=== PATIENT | female | born 1965 | race Caucasian/White ===

== ENCOUNTER 2023-02-24 10:47 | Outpatient (OUT) | payer OTHER, SELFPAY ==
--- NOTE | 2023-02-24 10:51 | PM.CN ---
Consult Note: HPI Data of Consult Patient: known to practice within the last 3 years Consult date: 02/24/23 Requesting Physician: KYLE SENA NP Primary Care Provider: SCOTT Stinson Narrative Narrative: Patient is here for f/u of low back rad to arms unchanged from last visit . Lyrica was stopped last visit which has helped brain fog. Medical marijuana use. No new sensorimotor or bowel or bladder issues. No adverse medication SE. Medication regimen assists patient in ability to complete ADLs. She is follwing up with her neurosurgeon soon. We discussed thoracic RFA procedure. She prefers no interventional tx at this time. cc:: CC: KYLE SENA NP Review of Systems ROS Status of ROS 10 or more systems reviewed and unremarkable except as noted in history and below Musculoskeletal Reports: back pain Exam Constitutional Documenting provider has reviewed patient's vital signs: yes Common normals: no apparent distress, average body habitus, oriented x3, no limitations, healthy appearing, alert and well nourished Orientation/consciousness: Yes awake, Yes oriented to person, Yes oriented to place and Yes oriented to time HENMT Common normals: normocephalic, head/scalp atraumatic, nasal mucous membranes and turbinates normal and moist oral mucous membranes Respiratory Common normals: normal respiratory effort, no retractions and no use of accessory muscles Effort & inspection: able to speak in complete sentences and symmetric chest movement Back & Pelvis Thoracic spine/upper back: normal to inspection, ROM limited, paraspinal muscle tenderness, paraspinal muscle spasm and other soft tissue findings (positive facet loading right scapular ) Extremity Common normals: normal to inspection, full ROM, normal capillary refill and no pedal edema Other: muscle strength 4/5 bilat LE, 5/5 bilat UE sensation intact all extremities, no arm drift Assessment and Plan Assessment and Plan (1) Muscle spasm: (2) Thoracic spondylosis: (3) H/O degenerative disc disease: Plan consider thoracic RFA in future refill trazadone baclofen increase to BID PRN f/u with neurosurgeon
== END 2023-02-24 10:48 ==
PROVIDERS: PCP Family Medicine; Visit Provider Nurse Practitioner
DX: M47.814 Spondylosis without myelopathy or radiculopathy, thoracic region (principal); M62.838 Other muscle spasm
CPT/HCPCS: G0463

== ENCOUNTER 2023-08-11 10:38 | Outpatient (OUT) | payer OTHER, SELFPAY ==
--- NOTE | 2023-08-11 11:02 | PM.CN ---
Consult Note: HPI Data of Consult Patient: known to practice within the last 3 years Requesting Physician: Barbara Foote NP Primary Care Provider: SCOTT HART Consult Narrative Reason for consult: f/u Narrative: Lilo Hammond a pleasant 57 year old female presents for evaluation and management of chronic pain. Patient has ongoing neck pain post multiple sugeries, is now noticing weakness in right arm and hand and numbness tingling pain to right anterior neck and upper chest area. Patient continues to have mid thoracic back pain, today 5-02/19. Patient also has new lumbar back pain with radiculopathy to RLE. No loss of bowel or bladder. cc:: CC: Barbara Foote NP Review of Systems ROS Status of ROS 10 or more systems reviewed and unremarkable except as noted in history and below Musculoskeletal Reports: back pain and neck pain Meds Home Medications and Allergies Home Medications Medication Instructions Recorded Confirmed Type MEDICAL MARIJUANA 02/24/23 History OSCAL 600 mg DAILY 02/24/23 History amitriptyline 100 mg tablet 100 mg PO DAILY 02/24/23 02/24/23 History baclofen 10 mg tablet 10 mg PO BID 02/24/23 02/24/23 History levothyroxine 50 mcg capsule 50 mcg PO DAILY 02/24/23 02/24/23 History pregabalin 150 mg capsule (Lyrica) 150 mg PO BID 02/24/23 02/24/23 History sertraline 200 mg capsule 200 mg PO DAILY 02/24/23 02/24/23 History trazodone 100 mg tablet 100 mg PO DAILY 02/24/23 02/24/23 History Allergies Allergy/AdvReac Type Severity Reaction Status Date / Time No Known Drug Allergies Allergy Verified 02/24/23 11:23 Exam Constitutional Documenting provider has reviewed patient's vital signs: yes Common normals: no apparent distress, oriented x3, healthy appearing, alert and well nourished General appearance: cooperative Orientation/consciousness: Yes awake, Yes oriented to person, Yes oriented to place and Yes oriented to time HENMT Common normals: normocephalic, hearing grossly normal bilaterally and moist oral mucous membranes Head and scalp: normocephalic Eye Common normals: PERRL Pupil: PERRL Neck & C-Spine Common normals: full ROM General: normal visual inspection Chest Common normals: inspection of chest normal Respiratory Common normals: normal respiratory effort, no retractions and no use of accessory muscles Effort & inspection: able to speak in complete sentences and symmetric chest movement Back & Pelvis Thoracic spine/upper back: normal to inspection, ROM limited, pain with ROM, paraspinal muscle tenderness and other soft tissue findings (positive facet loading right scapular ) Lumbar spine/lower back: pain with ROM and straight leg raise positive right Other: negative lumbar facet loading positve RLE radiculopathy Extremity Common normals: normal to inspection, full ROM, normal capillary refill and no pedal edema Other: muscle strength 4/5 bilat LE, 5/5 bilat UE sensation intact all extremities, no arm drift Extremity image (front): 1. Neuro Common normals: oriented x3, CN's II-XII intact bilaterally, moves all extremities, no focal motor deficits, no sensory deficits noted and deep tendon reflexes 2+ bilaterally Sensorium/orientation: alert Motor exam: no movement abnormalities noted and strength abnormal (4/5 BUE 4/5 in RLE) Psych Common normals: mental status grossly normal, thought process normal, cooperative, affect normal, speech normal and activity/motor behavior normal Speech: normal speech Thought process: normal thought process Results Additional Findings Additional findings: I have checked an [facility] report on this patient today and there are no aberrancies noted in the prescribing history.?? A drug screen was completed and reviewed within the last year, and if there has not been a drug screen completed we ordered one today to monitor higher risk, state monitored pain medication use. As part of providing excellent, safe, comprehensive care, the following was completed at our patient's visit: 1. A medication reconciliation and review to ensure accurate knowledge of current/active medications, including asking our patients to inform us about any [id number] medications or herbal remedies/nutritional supplements/alternative remedies. 2. A review to specifically ensure our patients have had annual screening for: elevated body mass index (BMI), tobacco use, screening for depression, and screening for unhealthy alcohol use. When screening is concerning, patients are provided with education and the specific recommendation to discuss the concerning health issue and treatment options with their primary care provider. Assessment and Plan Assessment and Plan (1) Thoracic spondylosis: (2) Muscle spasm: (3) Chronic neck pain: (4) H/O neck surgery: (5) H/O degenerative disc disease: (6) Lumbar spondylosis: (7) Lumbar radiculopathy: Plan patient has follow up with her Neurosurgeon next week and would like to discuss her symptoms with them continue current medication f/u 3 months or as needed
== END 2023-08-11 10:39 | disposition home or self-care (01) ==
LOC: PM 10:38
PROVIDERS: PCP Family Medicine; Visit Provider Nurse Practitioner
DX: M47.814 Spondylosis without myelopathy or radiculopathy, thoracic region (principal); M62.838 Other muscle spasm; M54.2 Cervicalgia; M50.30 Other cervical disc degeneration, unspecified cervical region; M47.816 Spondylosis without myelopathy or radiculopathy, lumbar region; M54.16 Radiculopathy, lumbar region
CPT/HCPCS: G0463

== ENCOUNTER 2023-11-10 10:51 | Outpatient (OUT) | payer OTHER, SELFPAY ==
--- OUTSIDE RECORDS SUMMARY | 2023-11-10 10:55 | XMS_ITS | CCD ---
Author Name Unknown Address [address] [place] [address] Organization [facility] Care Team Providers Care Credentialing Specialist Name Role Phone Julian Pulido Unavailable LUNA ., DR HELENA Biggs Attending Unavailable WONDERLY, DR JIA lAatorre Primary Care Unavailable CARRASCO ., DR HELENA Biggs Admitting Unavailable CARSON ., KEVIN Consulting Unavailable CARRASCO ., DR HELENA Biggs Attending Unavailable CARRASCO ., DR HELENA Biggs Admitting Unavailable WONDERLY, DR JIA Alatorre Primary Care Unavailable CARSON ., KEVIN Consulting Unavailable WONDERLY, DR JIA Alatorre Consulting Unavailable CARSON ., KEVIN Consulting Unavailable CARRASCO ., DR HELENA Biggs Attending Unavailable WONDERLY, DR JIA Alatorre Primary Care Unavailable CARRASCO ., DR HELENA Biggs Admitting Unavailable CARRASCO ., DR HELENA Biggs Admitting Unavailable CARRASCO ., DR HELENA Biggs Attending Unavailable WONDERLY, DR JIA Alatorre Primary Care Unavailable CARSON ., KEVIN Consulting Unavailable LAKSHMIPATHY ., NARENDAZALEAATH Admitting Ruth vailable WONDERLY, DR JIA Alatorre Primary Care Unavailable LAKSHMIPATHY ., NARENDAZALEAATH Attending Ruth vailable CARRASCO ., DR HELENA Biggs Attending Unavailable CARRASCO ., DR HELENA Biggs Admitting Unavailable WONDERLY, DR JIA Alatorre Primary Care Unavailable CARSON ., KEVIN Consulting Unavailable CARRASCO ., DR HELENA Biggs Attending Unavailable WONDERLY, DR JIA Alatorre Primary Care Unavailable CARRASCO ., DR HELENA Biggs Consulting Unavailable CARRASCO ., DR HELENA Biggs Admitting Unavailable Wonderly Jia CHAVES Primary Care Provider TODD ISLAS Admitting Unavailable TODD ISLAS Attending Unavailable TODD ISLAS Referring Unavailable WONDERJIA LUONG Primary Care Unavailable TODD ISLAS Attending Unavailable TODD ISLAS Referring Unavailable WONDERLY, JIA B Primary Care Unavailable JEANNETTE HARRIS Attending Unavailable WONDERLY, JIA B Primary Care Unavailable TODD ISLAS Admitting Unavailable FLORENCIA ISLASLITZYARUNA Salguero Attending Unavailable TODD ISLAS Referring Unavailable WONDERLY, JIA B Primary Care Unavailable SETH GILLESPIE Attending Unavailable WONDERLY, JIA B Primary Care Unavailable TODD ISLAS Attending Unavailable FLORENCIA ISLASGENOVEVAKRISTINA Salguero Referring Unavailable WONDERLY, JIA B Primary Care Unavailable Jeannette Palmer Referring Unavailable WONDERLY, JIA B Primary Care Unavailable PRIYANKA MCGRATH Referring Unavailable WONDERLY, JIA B Primary Care Unavailable PRIYANKA MCGRATH Referring Unavailable WONDERLY, JIA B Primary Care Unavailable TODD ISLAS Referring Unavailable WONDERLY, JIA Alatorre Primary Care Unavailable Medications Current Medications Medication Drug Class(es) Dates Sig (Normalized) Sig (Original) amitriptyline hydrochloride 100 mg oral tablet (3 sources) Tricyclic Antidepressant Start: 12-08-2020 take 1 tablet by mouth once daily amitriptyline (ELAVIL) 100 mg tablet Indications: Chronic bilateral low back pain without sciatica , Bilateral carpal tunnel syndrome , Lumbar radiculopathy , Cervical disc disease Take 1 tablet (100 mg total) by mouth nightly. 30 tablet 6 12/08/2020 Active baclofen 10 mg oral tablet (3 sources) gamma-Aminobutyric Acid-ergic Agonist Start: 08-13-2021 take 1 tablet by mouth once daily baclofen (LIORESAL) 10 mg tablet Take 1 tablet (10 mg total) by mouth nightly. 0 08/13/2021 Active Calcium (2 sources) Phosphate Binder, Calcium CALCIUM ORAL Take by mouth. 0 Active calcium carbonate 1250 mg oral tablet (1 source) take 1 tablet by mouth every twelve hours Calcium 500 MG 1 tablet with meals Orally Twice a day Active cholecalciferol 0.125 mg oral tablet (3 sources) Vitamin D take 1 tablet by mouth in the morning cholecalciferol, vitamin D3, 5,000 units tablet Take 1 tablet (5,000 Units total) by mouth in the morning. 0 Active take 1 tablet by cliff th every twenty-four hours Vitamin D 50 MCG (1999 UT) 1 tablet Orally Once a day Active diclofenac sodium 50 mg delayed release oral tablet (1 source) Nonsteroidal Anti-inflammatory Drug Diclofenac Sodium 50 MG Oral for 30 Active estradiol 0.1 mg/ml vaginal cream (2 sources) Estrogen Start: 023 estradioL (ESTRACE) 0.01 % (0.1 mg/gram) vaginal cream Insert into the vagina. 0 07/07/2023 Active estrogens, conjugated (long-term) 0.45 mg oral tablet (1 source) Estrogen take 1 tablet by mouth every twenty-four hours Premarin 0.45 MG 1 tablet Orally Once a day Active gabapentin 300 mg oral capsule (1 source) Anti-epileptic Agent Gabapentin 300 MG Oral for 90 Active levothyroxine sodium 0.05 mg oral tablet (3 sources) l-Thyroxine Start: 017 take 1 tablet by mouth in the morning levothyroxine (SYNTHROID, LEVOTHROID) 50 MCG tablet Take 1 tablet (50 mcg total) by mouth in the morning. 1 10/14/2016 Active take 1 tablet by cliff th once daily before mealtime Levothyroxine Sodium 50 MCG TAKE 1 TABLE T BY MOUTH EVERY DAY BEFORE A MEAL DIRECTED Oral for 90 Active melatonin 3 mg oral tablet (2 sources) melatonin (CIRCA DIN) tablet Take by mouth. 0 Active multivitamin (THERAGRAN) tablet (2 sources) take 1 tablet by mouth in the morning multivitamin (THERAGRAN) tablet Take 1 tablet by mouth in the morning. 0 Active sertraline 100 mg oral tablet (3 sources) Serotonin Reuptake Inhibitor take 2 tablets by mouth in the morning sertraline (ZOLOFT) 100 mg tablet Take 2 tablets (200 mg total) by mouth in the morning. 0 Active sod sulf-pot chloride-mag sulf 1.479-0.188- 0.225 gram tablet (1 source) Start: 4 sod sulf-pot chloride-mag sulf 1.479-0.188- 0.225 gram tablet Indications: History of colon polyps FOLLOW INSTRUCTIONS GIVEN BY SURGEONS OFFICE 24 tablet 0 09/23/2023 Active traZODone hydrochloride 50 mg oral tablet (2 sources) Serotonin Reuptake Inhibitor Start: 2 traZODone (DESYREL) 50 mg tablet Problems Active Problems Problem Classification Problem Date Documented Date Episodic/Chronic Anxiety disorders (2 sources) Generalized anxiety disorder; Translations: [Generalized anxiety disorder] Onset: 05-18-2017 05-18-2017 Chronic Esophageal disorders (1 source) Gastroesophageal reflux disease; Translations: [GERD (gastroesophageal reflux disease)] Chronic Genitourinary symptoms and ill-defined conditions (2 sources) Urinary incontinence; Translations: [Unspecified urinary incontinence] Onset: 11-08-2016 01-17-2023 Chronic Mood disorders (2 sources) Recurrent major depressive episodes, moderate ; Translations: [Major depressive disorder, recurrent, moderate] Onset: 04-13-2017 04-13-2017 Chronic Other and unspecified benign neoplasm (1 source) History of polyp of colon; Translations: [Personal history of colonic polyps] 09-23-2023 Episodic Other nervous system disorders (1 source) Ulnar neuropathy; Translations: [Lesion of ulnar nerve, bilateral upper limbs] Chronic Other nervous system disorders (1 source) Cervical myelopathy; Translations: [Disease of spinal cord, unspecified] Chronic Other nervous system disorders (1 source) Disease of spinal cord, unspecified Onset: 10-13-2021 Resolved: 10-13-2021 Chronic Other nervous system disorders (1 source) Lesion of ulnar nerve, bilateral upper limbs Onset: 10-13-2021 Resolved: 10-13-2021 Chronic Other nervous system disorders (1 source) Chronic pain syndrome; Translations: [CHRONIC PAIN SYNDROME] Onset: 12-04-2022 Chronic Other nervous system disorders (2 sources) Bilateral carpal tunnel syndrome; Translations: [Carpal tunnel syndrome, bilateral upper limbs] Onset: 10-20-2021 10-20-2021 Chronic Other nervous system disorders (2 sources) Chronic pain syndrome; Translations: [Chronic pain syndrome] Onset: 01-19-2022 01-19-2022 Chronic Other nervous system disorders (1 source) Other chronic pain; Translations: [Other chronic pain] Onset: 09-01-2023 Chronic Other screening for suspected conditions (not mental disorders or infectious disease) (1 source) Abnormal findings on diagnostic imaging of other parts of digestive tract; Translations: [Abnormal findings on diagnostic imaging of other parts of digestive tract] Onset: 10-07-2023 Episodic Spondylosis; intervertebral disc disorders; other back problems (11 sources) Spondylosis without myelopathy or radiculopathy, thoracic region; Translations: [Other intervertebral disc degeneration, thoracic region] Onset: 10-20-2021 Chronic Unclassified (1 source) history of colon polyps Onset: 09-09-2023 Past or Other Problems Problem Classification Problem Date Documented Date Episodic/Chronic Abdominal hernia (1 source) Hiatal hernia; Translations: [Hiatal hernia] Episodic Abdominal pain (3 sources) Epigastric pain; Translations: [Epigastric pain] Onset: 7 06-09-2020 Episodic Acquired foot deformities (2 sources) Metatarsophalangeal joint stiff; Translations: [Other deformities of toe(s) (acquired), right foot] Onset: 1 05-15-2021 Episodic Esophageal disorders (1 source) Esophagitis; Translations: [Esophagitis] Episodic Genitourinary symptoms and ill-defined conditions (2 sources) Microscopic hematuria; Translations: [Other microscopic hematuria] Onset: 0 04-11-2020 Episodic Mood disorders (2 sources) Mood disorders Onset: 1 06-11-2021 Other acquired deformities (1 source) Mallet finger of right hand; Translations: [Mallet finger of right hand] Episodic Other and unspecified benign neoplasm (1 source) Benign polyp of colon; Translations: [Hyperplastic colonic polyp] Episodic Other connective tissue disease (1 source) Arthrodesis status Onset: 2 Resolved: 2 Episodic Other connective tissue disease (2 sources) Ganglion cyst of right foot; Translations: [Ganglion, right ankle and foot] Onset: 1 05-15-2021 Episodic Other diseases of kidney and ureters (2 sources) Cyst of kidney; Translations: [Cyst of kidney, acquired] Onset: 7 09-07-2021 Episodic Other diseases of kidney and ureters (2 sources) Renal impairment; Translations: [Disorder of kidney and ureter, unspecified] Onset: 1 11-11-2021 Episodic Other gastrointestinal disorders (2 sources) Drug-induced constipation; Translations: [Drug induced constipation] Onset: 7 06-15-2017 Episodic Other nervous system disorders (2 sources) Paresthesia of upper limb; Translations: [Anesthesia of skin] Onset: 2 01-19-2022 Episodic Residual codes; unclassified (2 sources) Poor short-term memory ; Translations: [Other amnesia] Onset: 2 10-20-2021 Episodic Residual codes; unclassified (2 sources) Forgetful; Translations: [Other general symptoms and signs] Onset: 2 10-20-2021 Episodic Spondylosis; intervertebral disc disorders; other back problems (11 sources) Pain in thoracic spine; Translations: [Dorsalgia, unspecified] Onset: 2 10-20-2021 Episodic Unclassified (2 sources) Onset: 2 01-19-2022 Urinary tract infections (2 sources) Recurrent urinary tract infection; Translations: [Urinary tract infection, site not specified] Onset: 8 01-17-2023 Episodic Results Test Name Value Interpretation Reference Range Facil ity CT CERVICAL SPINE W CONTon 1 11-02-2022 CT CERVICAL SPINE W CONT CT CERVICAL SPINE W CONT History: Cervical radiculopathy Technique: Thin axial images through the cervical spine were obtained following the intrathecal administration of contrast material by the interventional radiologist. The study was supplemented by sagittal and coronal reconstructed images. Automated exposure control was utilized. Comparison: 10/05/2016 Findings: Anterior and posterior fusion of C3-C5 is again demonstrated. No hardware abnormalities are seen. Laminectomies are also seen extending from C3 through C5. At C2-3, there is bilateral facet arthropathy. No disc abnormalities are seen. No spinal stenosis is demonstrated. At C3-4, no osseous or disc abnormalities are seen. No spinal stenosis is seen. At C4-5, no osseous or disc abnormality identified. No spinal stenosis is seen. At C5-6, disc space narrowing is seen. No spinal stenosis is demonstrated. There is a right-sided neural foraminal narrowing. At C6-7, severe disc space narrowing is seen. A deformity and loss of vertebral body height of C7 is again seen and appear stable. No spinal stenosis is seen. There is a bilateral neural foraminal narrowing. At C7-T1, worsening disc space narrowing has developed since the prior study. No spinal stenosis is seen. The neural foramen appear patent bilaterally. Impression: * Stable postoperative changes from C3 through C5, unchanged the previous examination dated 10/05/2016. * Multilevel neural foraminal narrowings as described above. * Multilevel disc space narrowing and degenerative disc disease. No spinal stenoses are identified. Finalized by Jeannette Palmer MD on 09/01/2023 11:48 AM Normal [facility] CT LUMBAR SPINE W CONTon CT LUMBAR SPINE W CONT CT LUMBAR SPINE W CONT History: Lumbar radiculopathy Technique: Thin axial images through the lumbar spine were obtained following the intrathecal demonstration of contrast material by the interventional radiologist.. The study was supplemented by sagittal and coronal reconstructed images. Automated exposure control was utilized. Comparison: None Findings: At L1-2, broad-based disc osteophyte complexes effacing the anterior aspect of the thecal sac. No spinal stenosis is seen. The neural foramen appear patent bilaterally. At L2-3, broad-based disc bulging effacing the anterior aspect of the thecal sac. Bilateral facet arthropathy is also seen. There is a mild spinal stenosis at this level. The neural foramen appear patent bilaterally. At L3-4, mild broad-based disc bulging is seen. No spinal stenosis is demonstrated. The neural foramen are patent bilaterally. At L4-5, broad-based disc bulge is seen. Bilateral facet arthropathy and ligament hypertrophy are demonstrated. These factors combine to produce a mild to moderate spinal stenosis. The neural foramen appear patent bilaterally. L5-S1, no osseous or disc abnormalities are demonstrated. No spinal stenosis is seen. The neural foramen appear patent bilaterally. Impression: * Multilevel broad-based disc bulging and disc osteophyte complexes as described above. * Mild spinal stenoses at L3-4 and L4-5 secondary to disc bulge, facet atrophic, and ligament hypertrophy. Finalized by Jeannette Palmer MD on 09/01/2023 12:07 PM Normal [facility] CT THORACIC SPINE W CONTon 1 11-02-2022 CT THORACIC SPINE W CONT CT THORACIC SPINE W CONT History: Thoracic back pain Technique: Thin axial images through the rest spine were obtained following the intrathecal administration of contrast material by the interventional radiologist. The study was supplemented by sagittal and coronal reconstructed images. Automated exposure control was utilized. Comparison: None Findings: There is multilevel disc space narrowing and degenerative disease throughout the thoracic spine. There is multilevel disc ossified complex throughout the thoracic spine producing effacement of the anterior aspect of the thecal sac to various degrees. These findings appear to be most severe at T10-11 and T11-12. At T9-T10, there is right-sided facet arthropathy and ligament hypertrophy effacing the right lateral aspect of thecal sac. At T10-11, left-sided facet arthropathy and ligament hypertrophy is seen effacing the left aspect of the thecal sac. At T11-T12, there is bilateral facet arthropathy and hypertrophy effacing the lateral aspect of the thecal sac. This in combination with the disc height complex is seen producing a mild spinal stenosis. Impression: * Multilevel disc osteophyte complex effacing the anterior aspect of the thecal sac, most severe at T10-11 and T11-12. * Bilateral facet arthropathy and ligament hypertrophy at T11-12 which, in combination with the discussed by complex, seen producing a mild spinal stenosis. * Right-sided facet arthropathy and ligament hypertrophy at T9-T10. Left-sided facet arthropathy and ligament hypertrophy at T10-11. Finalized by Jeannette Palmer MD on 09/01/2023 11:56 AM [facility] [place] INJ LUM/SAC FOR DIAG/THER P W FLUORO GUIDEon 09-01-2023 FL INJ LUM/SAC FOR DIAG/THERP W FLUORO GUIDE FL INJ LUM/SAC FOR DIAG/THERP W FLUORO GUIDE History: 57-year-old female with multilevel back pain.. Lumbar CT myelogram was requested Exam/Technique: The procedure was performed by Dr. Palmer. Maximum sterile barrier technique was used as is protocol for the institution. Total fluoroscopy time was 0.6 minutes. Reference air kerma was 2.8 mGy. Benefits and potential risks of the procedure were explained to the patient and informed written consent was obtained. Following appropriate prep and drape and using lidocaine for anesthesia, a lumbar puncture was performed under fluoroscopic guidance at L3 using a 22-gauge spinal needle. Once clear CSF was obtained, contrast was injected intrathecally without difficulty. The needle was then removed. No immediate complications were encountered. A single fluoroscopic spot image was obtained. The patient tolerated the procedure well. The patient was then placed on a cart and placed in a Trendelenburg position so that contrast flowed into the thoracic and cervical spine. The patient tolerated the procedure well was sent for a scheduled CT of the thoracic and lumbar spine stable condition. Comparison: None Findings: There is an anterior extradural filling defect mild spinal stenosis at L4-5. IMPRESSION: Successful uncomplicated cervical thoracic and lumbar myelogram performed under fluoroscopic guidance Finalized by Jeannette Palmer MD on 09/01/2023 11:34 AM Normal [facility] PLATELET COUNT AND MPVon Platelet mean volume (Bld) [Entitic vol] 8.3 fL Normal 7-[address] [facility] Comment on above: Performed By: #### P LTCT, PINR #### [facility] ([id number]) [address] [place] [id number] Platelets (Bld) [#/Vol] 339 10*3/uL Normal 150-[address] [facility] Comment on above: Performed By: #### P LTCT, PINR #### [facility] ([id number]) [address] [place] [id number] PROTIME AND INRon 09-01-2023 INR Coag (PPP) [Relative time] 1.0 {INR} Normal 0.8-1.[address] [facility] Comment on above: Performed By: #### P LTCT, PINR #### [facility] ([id number]) [address] [place] [phone] PT Coag (PPP) [Time] 11.8 s Normal 9.8-13.[address] [facility] Comment on above: Result Comment: NEW REFERENCE RANGE Performed By: #### P LTCT, PINR #### [facility] ([id number]) [address] [place] [id number] XR Bone Density (DEXA)on XR Bone Density (DEXA) EXAM: Dual Femur Bone Density FINDINGS: Dual Femur bone density obtained with a [employer] whole body system: RegionBMDYoung-AdultAg e-Matched Total(g/cm2)(%)T-Score (%)Z-Score Mean0.79668-5.44567.6 Impression: The mean BMD and corresponding T-score indicated above indicate Normal Bone Mass and places the patient at no significant risk for fracture. This information can serve as a baseline with which to compare future studies. EXAM: AP Lumbar Bone Density FINDINGS: AP Spine bone density obtained with a [employer] whole body system: RegionBMDYoung-AdultAg e-Matched Total(g/cm2)(%)T-Score (%)Z-Score L1-L40.52074-9.59203.7 Impression: The mean BMD and corresponding T-score indicated above indicate Normal Bone Mass and places the patient no significant risk for fracture. This information can serve as a baseline with which to compare future studies. Comment: The T-score is the primary focus of the interpretation of a patient???s bone mineral density measurement. The T-score is the number of standard deviations an individual is above or below the mean value for a young female having normal bone mass. The WHO defines osteoporosis based on the T-score value??? +1.0 to ???0.9: Normal bone mass -1.0 to -2.5: Osteopenia and thus may be at future risk of fracture -2.6 to ???5: Osteoporosis and ???at significantly increased risk of fracture??? A Z-Score of -2.0 or lower is defined as ???below the expected range for age??? and a Z-Score above -2.0 is ???within the expected range for age.??? Osteoporosis cannot be diagnosed in men under the age of 50 on the basis of BMD alone. Per 2019 ISCD guidelines, Z-Scores (not T-Scores) are preferred when reporting data in premenopausal females and males less than 50 years of age. 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 Location: 85 Patient Status: O Ordered Date: 10/19/2019 8:05:00 AM Completed Date: 10/19/2019 08:06 AM Requesting Provider: JERMAINE DEL CID Attending Provider: JERMAINE DEL CID Report Copy To: JIA HART Signs & Symptoms: M48.02 Spinal stenosis, cervical region I10 History: [place] Comments: , flex/ex , flex/ex , , , Ordering Provider - JERMAINE DEL CID MD , Exam: CERVICAL SPINE 2 OR 3 VWS ======== CERVICAL SPINE 2 OR 3 VWS 10/19/2019 8:06 AM SIGNS AND SYMPTOMS: M48.02 Spinal stenosis, cervical region I10 TECHNOLOGIST COMMENTS: Ortho follow up for cervical spine surgery. Surgery was June 2016. QUESTION FOR THE RADIOLOGIST: , flex/ex , flex/ex , , , Ordering Provider - JERMAINE DEL CID MD , PROTOCOL: Flexion and Extension views were obtained. COMPARISON: March 01, 2017 FINDINGS: Soft tissues: Postoperative change with surgical clips in the prevertebral area about appendicitis Bones: Posterior and anterior fusion hardware spanning C3-C5 in good alignment and with mature bony healing similar to prior study Laminectomies at the same levels Joints: C2-C3 shows 2 mm anterolisthesis of 2 on 3 with flexion C6-C7 shows disc space narrowing and spurring Range of motion shows somewhat limited range of motion with reduction of the C2 on C3 anterolisthesis upon extension. IMPRESSION: Postoperative cervical fusion anteriorly and posteriorly as above without change from March 01, 2017 Electronically signed: Joshua Mcadams. Transcribed by: [email or web address], User Resident: Electronically Signed by: JOSHUA MCADAMS @ 10/19/2019 02:03 PM Normal [facility] Comment on above: Order Comment: , fle x/ex , flex/ex , , , Ordering Provider - JERMAINE DEL CID MD , APTTon 02-08-2019 aPTT Coag (Bld) [Time] 27.7 s Normal 25.0-35.0 [facility] Comment on above: Result Comment: ALL RESULTS MUST BE INTERPRETED WITH RESPECT TO BLOOD DRAWING ARTIFACT OR DILUTION ERROR OF ANTICOAGULANT AT THE TIME OF SAMPLING. THE APTT SHOULD NOT BE USED TO MONITOR UNFRACTIONATED HEPARIN THERAPY, THIS LABORATORY NO LONGER HAS AN ESTABLISHED THERAPEUTIC RANGE BASED ON THE APTT. IT IS RECOMMENDED THAT THE [facility] - HEPARIN ASSAY (ANTI-XA ACTIVITY) BE USED FOR THIS PURPOSE. Performed By: #### [id number] #### [facility] [address] BASIC METABOLIC PANELon 01-12 Calcium [Mass/Vol] 9.2 mg/dL Normal 8.6-10.3 [facility] Comment on above: Performed By: #### 0 [id number] #### [facility] [address] [facility] [place] [address], [facility] Chloride [Moles/Vol] 98 mmol/L Normal 98-107 [facility] Comment on above: Performed By: #### 0 [id number] #### [facility] [address] [facility] [place] [id number], [facility] CO2 [Moles/Vol] 31 mmol/L Normal 21-31 [facility] Comment on above: Performed By: #### 0 [id number] #### [facility] [address] [facility] [place] [address], [facility] Creatinine [Mass/Vol] 1.06 mg/dL Normal 0.60-1.20 [facility] Comment on above: Performed By: #### 0 [id number] #### [facility] [address] [facility] [place] [id number], [facility] GFR/1.73 sq M predicted among blacks MDRD (S/P/Bld) [Vol rate/Area] mL/min/{1.73_m2} Normal >60 The [facility] Comment on above: Performed By: #### 0 0071 #### [facility] [address] [place] [address], [facility] GFR/1.73 sq M predicted among non-blacks MDRD (S/P/Bld) [Vol rate/Area] 54 ml/min/1.73sq m Abnormal >60 The [facility] Comment on above: Performed By: #### 0 0071 #### [facility] [address] [facility] [place] [address], [facility] Glucose [Mass/Vol] 132 mg/dL High 70-100 The [facility] Comment on above: Performed By: #### 0 0071 #### [facility] [address] [place] [id number], [facility] Potassium [Moles/Vol] 3.6 mmol/L Normal 3.5-5.1 The [facility] Comment on above: Performed By: #### 0 0071 #### [facility] [address] [place] [address], [facility] Sodium [Moles/Vol] 138 mmol/L Normal 136-145 The [facility] Comment on above: Performed By: #### 0 0071 #### [facility] [address] [place] [address], [facility] Urea nitrogen [Mass/Vol] 20 mg/dL Normal 7-25 The [facility] Comment on above: Performed By: #### 0 0071 #### [facility] [address] [place] [id number], [facility] CBC W/DIFFon 02-08-2019 ABS BASOPHILS 0.0 10*3/uL Normal 0.0-0.2 The [facility] Comment on above: Performed By: #### 5 0103 #### [facility] [address] [place] [address], [facility] ABS IMM GRANS 0.0 10*3/uL Normal 0.0-0.2 The [facility] Comment on above: Performed By: #### 5 0103 #### [facility] [address] [facility] [address], [facility] ABS NEUTROPHILS 5.8 10*3/uL Normal 1.6-7.6 The [facility] Comment on above: Performed By: #### 5 0103 #### [facility] [address] [place] [address], [facility] Basophils/100 WBC (Bld) 0.4 % Normal 0.0-1.0 The [facility] Comment on above: Performed By: #### 5 0103 #### [facility] [address] [facility] [address], [facility] Eosinophils (Bld) [#/Vol] 0.1 10*3/uL Normal 0.0-0.5 The [facility] Comment on above: Performed By: #### 5 0103 #### [facility] [address] [facility] [address], [facility] Eosinophils/100 WBC (Bld) 1.0 % Normal 0.0-6.0 The [facility] Comment on above: Performed By: #### 5 0103 #### [facility] [address] Erythrocyte distribution width (RBC) [Ratio] 14.1 % Normal 11.5-15.0 The [facility] Comment on above: Performed By: #### 5 0103 #### [facility] [address] [facility] [address], [facility] Hematocrit (Bld) [Volume fraction] 36.3 % Normal 36.0-45.0 The [facility] Comment on above: Performed By: #### 5 0103 #### [facility] [address] Hemoglobin (Bld) [Mass/Vol] 11.9 g/dL Low 12.0-15.0 The [facility] Comment on above: Performed By: #### 5 3 #### [facility] [address] [place] [address], [facility] IMMATURE GRANS 0.4 % Normal 0.0-1.0 [facility] Comment on above: Performed By: #### 102 #### [facility] [address] Lymphocytes (Bld) [#/Vol] 1.5 10*3/uL Normal 1.2-4.0 The [facility] Comment on above: Performed By: #### 102 #### [facility] [address] Lymphocytes/100 WBC (Bld) 19.1 % Low 20.0-45.0 The [facility] Comment on above: Performed By: #### 3 #### [facility] [address] MCH (RBC) [Entitic mass] 28.5 pg Normal 27.0-33.0 The [facility] Comment on above: Performed By: #### 5 3 #### [facility] [address] MCHC (RBC) [Mass/Vol] 32.8 g/dL Normal 32.0-35.0 The [facility] Comment on above: Performed By: #### 3 #### [facility] [address] [place] [address], [facility] MCV (RBC) [Entitic vol] 87.1 fL Normal 82.0-98.0 The [facility] Comment on above: Performed By: #### 5 0103 #### [facility] [address] [place] [address], [facility] Monocytes (Bld) [#/Vol] 0.4 10*3/uL Normal 0.1-1.0 [facility] Comment on above: Performed By: #### 102 #### [facility] [address] [place] [id number], [facility] MONOS 4.9 % Low 5.0-12.0 The [facility] Comment on above: Performed By: #### 102 #### [facility] [address] [facility] [place] [address], [facility] Neutrophils/100 WBC (Bld) 74.2 % High 40.0-72.0 The [facility] Comment on above: Performed By: #### 102 #### [facility] [address] [facility] [place] [address], [facility] Nucleated RBC/100 WBC (Bld) [Ratio] 0 % Normal 0-0 The [facility] Comment on above: Performed By: #### 102 #### [facility] [address] [facility] [place] [address], [facility] PLAT CNT 294 10*3/uL Normal 150-400 The [facility] Comment on above: Performed By: #### 102 #### [facility] [address] [facility] [place] [address], [facility] RBC (Bld) [#/Vol] 4.17 10*6/uL Normal 3.80-5.00 The [facility] Comment on above: Performed By: #### 102 #### [facility] [address] [facility] [place] [address], [facility] WBC (Bld) [#/Vol] 7.80 10*3/uL Normal 4.00-10.60 The [facility] Comment on above: Performed By: #### 102 #### [address], [place] [address] CERVICAL MYELOGRAMon 019 CERVICAL MYELOGRAM [facility] Department of Radiology [address] [place] [address] [place] [address] ======== Patient Name: LILO BEAUCHAMP : 1965 Sex: F Age: Race: White Pt. Location: Patient Status: O Ordered Date: 01/25/2019 12:50:00 PM Completed Date: 02/08/2019 10:38 AM Requesting Provider: JERMAINE DEL CID Attending Provider: HELENA CARRASCO Report Copy To: JIA HART Signs & Symptoms: M48.02 Spinal stenosis, cervical region I10 History: Kelly Comments: , , , Ordering Provider - JERMAINE DEL CID MD , Exam: CERVICAL MYELOGRAM ======== CERVICAL MYELOGRAM 02/08/2019 10:38 AM EDT SIGNS AND SYMPTOMS: M48.02 Spinal stenosis, cervical region I10 TECHNOLOGIST COMMENTS: Cervical myelogram flouro time: 1.45 minutes patient complains of neck pain radiating down the arms. multiple surgeries to neck QUESTION FOR THE RADIOLOGIST: , , , Ordering Provider - JERMAINE DEL CID MD , INFORMED CONSENT: Reason for procedure was discussed with the patient. The procedure expectations risks benefits options and alternatives were discussed. All the questions were answered. The patient understood that results cannot be guaranteed. The procedure is indicated and risks are acceptable. Consent was obtained. Timeout: [place] protocol timeout verification performed. PROCEDURE: Estimated blood loss: None mL. Fluoroscopy time: 1.45 minutes CONTRAST: Contrast: OMNIPAQUE 240 (LOCM), 15 milliliter, Intraspinal FINDINGS: Lidocaine 1% ws used for local anesthesia. Lumbar punction was performed under fluroscopic guidance with strict aseptic precautions at L3-L4 via oblique sublaminar approach using a 3.5 inch 20-guage Retrograde free flow of clear CSF was obtained.Approximately 15 mL of Omnipaque 240 was introduced under intermittent fluoroscopic visualization. The table was placed in Trendelenburg position and the contrast was visualized fluoroscopically as transit of the cervical spine. The patient tolerated the procedure well and was sent for CT cervical myelogram. IMPRESSION: Successful cervical spine myelogram. Please see separate CT cervical spine report for detailed findings. Electronically signed by:Den Gonzalez. Transcribed by: [email or web address], User Resident: Electronically Signed by: DEN GONZALEZ @ 02/08/2019 03:30 PM Normal The [facility] Comment on above: Order Comment: , , = ========= , Ordering Provider - JERMAINE DEL CID MD , CT 3D CERVICAL SPINE WITH CO NTRASTon 02-08-2019 CT 3D CERVICAL SPINE WITH CONTRAST [facility] Department of Radiology [address] [place] [address] ======== Patient Name: LILO BEAUCHAMP : 1965 Sex: F Age: Race: White Pt. Location: Patient Status: O Ordered Date: 01/25/2019 12:50:00 PM Completed Date: 02/08/2019 11:09 AM Requesting Provider: JERMAINE DEL CID Attending Provider: JERMAINE DEL CID Report Copy To: JIA HART Signs & Symptoms: M48.02 Spinal stenosis, cervical region I10 History: [facility] works/[employer] auth# [id number] 01/30/19-05/02/19 cpt code 84665 *mla Comments: Exam: CT 3D CERVICAL SPINE WITH CONTRAST ======== CT 3D CERVICAL SPINE WITH CONTRAST 02/08/2019 11:09 AM EDT SIGN AND SYMPTOMS: M48.02 Spinal stenosis, cervical region I10 TECHNOLOGIST COMMENTS: pain post myelo prev surg QUESTION FOR RADIOLOGIST: PROTOCOL: Axial CT images of the spine were obtained with IV contrast. TECHNIQUE: Multi detector CT axial slices of the cervical spine are obtained from the occiput to the vertebral body without IV contrast. Volumetric acquisition sagittal, coronal, and 3-D reconstructions were performed and reviewed on a separate workstation. Appropriate CT dose lowering techniques were utilized. COMPARISON: None. FINDINGS: Alignment: Straightening of lordosis Vertebral bodies: Anterior fusion C3-C5. Interbody fusion with graft material at C5-C6. Posterior fusion C3-C5. Laminectomy C3-C5 Disc spaces: Severe intervertebral disc space narrowing below the fusions at C6-C7 and C7-T1. C2-C3: Uncovertebral joint degenerative change and facet hypertrophy. No canal stenosis. No foraminal narrowing C3-C4: Posterior uncovertebral joint degenerative change. No canal stenosis. Moderate right and moderate left foraminal narrowing C4-C5: Uncovertebral joint degenerative change. Mild to moderate bilateral foraminal narrowing. No canal stenosis C5-C6: Uncovertebral joint degenerative change and posterior osteophyte formation. Mild canal stenosis with effacement of the anterior thecal sac. Severe right and mild to moderate left foraminal narrowing.Right pedicle screw at the C5 level extends into the C5-C6 neural foramen intervening to some of the canal stenosis C6-C7: Uncovertebral joint degenerative changes. No canal stenosis. Mild right foraminal narrowing. C7-T1 no canal stenosis or foraminal narrowing IMPRESSION: C3-C4: Posterior uncovertebral joint degenerative change. No canal stenosis. Moderate right and moderate left foraminal narrowing C5-C6: Uncovertebral joint degenerative change and posterior osteophyte formation. Mild canal stenosis with effacement of the anterior thecal sac. Severe right and mild to moderate left foraminal narrowing. Right pedicle screw at the C5 level extends into the C5-C6 neural foramen intervening to some of the canal stenosis Electronically signed by:Den Gonzalez. Transcribed by: [email or web address], User Resident: Electronically Signed by: DEN GONZALEZ @ 02/08/2019 01:36 PM Normal The [facility] PROTHROMBIN TIMEon 9 INR Coag (PPP) [Relative time] 1.04 {INR} Normal 0.91-1.16 [facility] Comment on above: Result Comment: ACCC P RECOMMENDED INR FOR WARFARIN THERAPY ----- ------- CONDITION INR PROPHYLAXIS OF VENOUS THROMBOSIS 2-3 (HIGH-RISK SURGERY) TREATMENT OF VENOUS THROMBOSIS 2-3 TREATMENT OF PULMONARY EMBOLISM 2-3 PREVENTION OF SYSTEMIC EMBOLISM: 2-3 ACUTE MYOCARDIAL INFARCTION TISSUE HEART VALVES VALVULAR HEART DISEASE ATRIAL FIBRILLATION RECURRENT SYSTEMIC EMBOLISM MECHANICAL HEART VALVE 2.5-3.5 FROM: ORAL ANTICOAGULANTS. MECHANISM OF ACTION, CLINICAL EFFECTIVENESS, AND OPTIMAL THERAPEUTIC RANGE. CHEST 1995;108:231S-246S. Performed By: #### 5 7307, [address] #### [address] PT Coag (PPP) [Time] 13.6 s Normal 12.3-14.8 The [facility] Comment on above: Result Comment: ALL RESULTS MUST BE INTERPRETED WITH RESPECT TO BLOOD DRAWING ARTIFACT OR DILUTION ERROR OF ANTICOAGULANT AT THE TIME OF SAMPLING. Performed By: #### 5 7307, 86688 #### [facility] [address] [place] [address], [facility] URINALYSIS REFLEXon 02-09-20 19 Appearance (U) CLEAR Normal CLEAR The [facility] Comment on above: Performed By: #### 3 0965 #### [facility] [address] [place] [address], [facility] Bilirubin [Mass/Vol] Negative Normal NEGATIVE The [facility] Comment on above: Performed By: #### 3 0965 #### [facility] [address] [place] [address], [facility] BLOOD SMALL Abnormal NEGATIVE The [facility] Comment on above: Performed By: #### 3 0965 #### [facility] [address] [place] [address], [facility] Color (U) STRAW Abnormal YELLOW The [facility] Comment on above: Performed By: #### 3 0965 #### [facility] [address] [place] [address], [facility] EPIS MANY Abnormal FEW,OCC,NONE SEEN The [facility] Comment on above: Performed By: #### 3 0965 #### [facility] [address] [place] [address], [place] Glucose [Mass/Vol] Negative Normal NEGATIVE [facility] Comment on above: Performed By: #### 3 0965 #### [facility] [address] [place] [address], [place] KETONE Negative Normal NEGATIVE The [facility] Comment on above: Performed By: #### 3 0965 #### [facility] [address] [place] [address], [place] LEUK TOMMY Negative Normal NEGATIVE The [facility] Comment on above: Performed By: #### 3 0965 #### [facility] [address] [place] [address], [facility] Nitrite Ql (U) Negative Normal NEGATIVE The [facility] Comment on above: Performed By: #### 3 0965 #### [facility] [address] [place] [address], [place] pH (Bld) 7.0 Normal 5.0-8.0 The [facility] Comment on above: Performed By: #### 3 0965 #### [facility] [address] [place] [address], [facility] Protein (U) [Mass/Vol] Negative Normal NEGATIVE The [facility] Comment on above: Performed By: #### 3 0965 #### [facility] [address] [place] [address], [facility] RBC (U) [#/Vol] 0-2 Abnormal NONE SEEN The [facility] Comment on above: Performed By: #### 3 0965 #### [facility] [address] [facility] [place] [address], [facility] SPEC GRAV 1.002 Low 1.015-1.020 The [facility] Comment on above: Performed By: #### 3 0965 #### [facility] [address] [facility] [place] [address], [facility] WBC UA 0-2 Abnormal NONE SEEN The [facility] Comment on above: Performed By: #### 3 0965 #### [facility] [address] [facility] [place] [address], [facility] Vital Signs Date Time Vital Sign Value Performing Clinician Sydneei rayne 10-13-2021 15:20-0500 Body height 171.45 cm Julian Pulido Other [facility] Other 10-13-2021 15:20-0500 Body mass index (BMI) [Ratio] 26.54 kg/m2 Julian Pulido Other [facility] Other 10-13-2021 15:10-4445 Body weight 78.02 kg Julian Pulido Other [facility] Other Encounters Encounter Date Encounter Type Care Provider Facility Start: 11-04-2023 Telephone encounter Krys Kingsleychris AMNA [facility] Start: 10-08-2023 End: 10-08-2023 Evaluation and management of inpatient SETH Barrios [facility] Start: 10-07-2023 End: 10-08-2023 Evaluation and management of inpatient [facility] Start: 10-07-2023 End: 10-07-2023 Evaluation and management of inpatient [facility] Start: 09-23-2023 Orders Only Ricarda Pizarro [facility] Comment on above: History of colon olga lidia yps (Primary Dx) Start: 09-10-2023 End: 09-10-2023 Evaluation and management of inpatient JEANNETTE HARRIS [facility] Start: 09-09-2023 End: 09-10-2023 Evaluation and management of inpatient [facility] Start: 09-01-2023 End: 09-01-2023 ambulatory [facility] Start: 09-01-2023 End: 09-02-2023 ambulatory PRIYANKA MCGRATH [facility] Start: 02-24-2023 ambulatory LARISA ADAMS . Facility:[facility] Start: 11-25-2022 End: 11-26-2022 ambulatory KEVIN CARSON . Facility:[facility] Start: 10-28-2022 End: 10-29-[address] HELENA CARRASCO . Facility:[facility] Start: 06-24-2022 End: 06-25-[address] HELENA CARRASCO . Facility:[facility] Start: 06-08-2022 End: 06-08-[address] HELENA CARRASCO . Facility:[facility] Start: 05-13-2022 End: 05-14-[address] HELENA CARRASCO . Facility:[facility] Start: 04-21-2022 End: 04-22-[address] HELENA CARRASCO . Facility:[facility] Start: 10-13-2021 End: 10-13-2021 ambulatory Julian Pulido Other [facility] [employer] Other Start: 10-13-2021 Office outpatient ne w 45 minutes Julian Pulido [facility] Neurosurgery Procedures Date Procedure Procedure Detail Performing Clinician Start: 10-07-2023 Colonoscopy Krys perez SOLAR TECH Start: 06-11-2021 Adult depression scr eening assessment Ricarda Pizarro RMA Plan of Treatment Date Care Activity Detail Author Start: 10-07-2033 Screening for malign ant neoplasm of colon Colonoscopy [facility] Start: 10-07-2024 Adult BMI Screening Adult BMI Screen ing [facility] Start: 10-07-2024 Tobacco Screening Tobacco Screening [facility] Start: 09-09-2024 Adult BMI Screening Adult BMI Screen ing [facility] Start: 09-09-2024 Tobacco Screening Tobacco Screening [facility] Start: 01-23-2024 End: 01-23-2024 Patient encounter procedure 01/23/2024 1:45 PM EDT Office Visit [facility] [address] [place] [address] A [facility] [place] [address] [facility] [place] [address] [facility] Start: 10-07-2023 End: 10-07-2023 Admission to same day surgery center 10/07/2023 8:15 AM EST - 10/07/2023 9:00 AM EST Surgery [facility] [address] [place] [address] Todd Islas MD [address] [place] [address] COLONOSCOPY DIAGNOSTIC / SCREENING [22951 (CPT )] [facility] Comment on above: COLONOSCOPY DIAGNOST IC / SCREENING [21932 (CPT )] Start: 10-07-2023 End: 10-07-2023 Colonoscopy flx dx w/collj spec when pfrmd COLONOSCOPY DIAGNOSTIC / SCREENING poor prep on previous colonoscopy 10/07/2023 8:15 AM EST [facility] Start: 10-07-2023 Subsequent hospital visit by physician 10/07/2023 8:15 AM EST Hospital Encounter [facility] [address] [place] [address] Todd Islas MD [address] [place] [address] [facility] Start: 09-29-2023 End: 09-29-2023 ambulatory 09/29/2023 2:20 PM EST Support Visit [facility] Admit [address] [place] [address] [facility] Pre Admit Start: 01-19-2023 Adult BMI Follow Up Plan Adult BMI Follow Up Plan [facility] Start: 06-11-2022 Depression Screening Depression Scre [facility] Start: 2014 Administration of varicella zoster vaccine Zoster (Shingles) Vaccine (1 of 2) [facility] Start: 1983 DTaP,Tdap and Td Vac cines (1 - Tdap) DTaP,Tdap and Td Vaccines (1 - Tdap) [facility] Payers Date Payer Category Payer Private Health Insurance [employer] [id number] 2022-Present [phone] [address] [address] [place] [address] [id number] 1965 Unknown [id number] 2.840.1.239203.3.579. 2.593 1965 Unknown [id number] 2.16.840.1.948030.3.579. 2.593 1965 Unknown [id number] 2.16.840.1.061553.3.579. 2.593 1964 Unknown [id number] 2.16.840.1.314176.3.579. 2.593 1964 Unknown [id number] 2.16.840.1.897931.3.579. 2.593 1964 Unknown [id number] 2.16.840.1.432216.3.579. 2.593 1964 Unknown [id number] 2.16.840.1.749086.3.579. 2.593 1964 Unknown [id number] 2.16.840.1.292463.3.579. 2.1286 1964 Unknown [id number] 2.16.840.1.777451.3.579. 2.1286 1964 Unknown [id number] 2.16.840.1.945555.3.579. 2.1286 1964 Unknown [id number] 2.16.840.1.152128.3.579. 2.6 1965 Unknown [id number] 2.16.840.1.979926.3.579. 2.1286 1964 Unknown [id number] 2.16.840.1.737301.3.579. 2.1286 1964 Unknown [id number] 2.16.840.1.784396.3.579. 2.1286 1964 Unknown [id number] 2.16.840.1.427469.3.579. 2.1286 1964 Unknown [id number] 2.16.840.1.575186.3.579. 2.1286 1964 Unknown [id number] 2.16.840.1.078694.3.579. 2.1286 1964 Unknown [id number] 2.16.840.1.092740.3.579. 2.1286 1964 Unknown [id number] 2.16.840.1.424798.3.579. 2.1286 1964 Unknown [id number] 2.16.840.1.292643.3.579. 2.1286 1964 Unknown [id number] 2.16.840.1.304816.3.579. 2.1286 1959 Unknown [id number] 2.16.840.1.423879.19 1959 Unknown [id number] Social History Date Type Detail Facility Unknown if ever smoked [facility] Other Start: 09-26-2020 End: 09-09-2023 Sex Assigned At [facility] Start: 08-10-2023 Tobacco smoking stat [facility] Ex-smoker [facility] History of tobacco use Current smoker [facility] Start: 08-10-2023 Tobacco use and exposure Smokeless tobacco non-user [facility] Start: 09-09-2023 End: 10-10-2023 Alcohol intake Current drinker of alcohol (finding) [facility] Start: 09-26-2020 End: 09-09-2023 History of Social function [facility] Adolescent depressio n screening assessment 1 [facility] Start: 05-15-2021 Alcohol Comment Social [facility] Start: 1965 Sex Assigned At Not on file [facility] Medical Equipment Procedure Code Equipment Code Equipment Origin al Text Equipment Identifier Dates Screw Bn 30mm 3m m 4.3mm Cnn [facility] Slf Drl Hdls Ti Mn T9 - Sna - [id number] Start: 05-15-2021 Clinical Notes 10-13-2021 to 11-04-2023 Telephone Encounter - Krys Saunders, [facility] - 11/04/2023 11:15 AM ESTTelephone Encounter - Krys Saunders, [facility] - 11/04/2023 11:15 AM ESTTelephone Encounter - Krys Saunders, [facility] - 11/04/2023 11:15 AM EST Note Date & Type Note Facility 11-04-2023 Miscellaneous Notes Formattin g of this note might be different from the original. ----- Message from Todd Islas MD sent at 11/03/2023 8:52 AM EST ----- Regarding: Barium enema results Please let patient know barium enema did not show any masses or strictures, just tortuous and redundant colon. Return for colonoscopy in 10 years. ----- Message ----- From: Interface - Rad Results/Orders In 1 Sent: 11/02/2023 2:46 PM EST To: Todd Islas MD Spoke with patient regarding pathology results. Patient verbally understood with no further questions. Recall will be put into chart. documented in this encounter [facility] 11-04-2023 Telephone encount er Note ----- Message from Todd Islas MD sent at 11/03/2023 8:52 AM EST ----- Regarding: Barium enema results Please let patient know barium enema did not show any masses or strictures, just tortuous and redundant colon. Return for colonoscopy in 10 years. ----- Message ----- From: Interface - Rad Results/Orders In 1 Sent: 11/02/2023 2:46 PM EST To: Todd Islas MD [facility] 11-04-2023 Telephone encount er Note Spoke with patient regarding pathology results. Patient verbally understood with no further questions. Recall will be put into chart. [facility] 11-25-2022 Note CONSULTATION CONSULTATION DATE: 11/25/2022 HISTORY: This is a 57-year-old female who returns to the clinic for chronic back pain and one month follow up. She was last seen on 10/28/2022 and, at that time, she preferred to slowly wean off of the Lyrica, as she feels it has caused her a mental decline. She has successfully weaned off that totally, and does have some residual left sided headaches and does wake up in night sweats. She is going to follow up with her PCP regarding those issues. Current medications include medical marijuana, Os-Rosas, amitriptyline and baclofen and trazodone. She describes the pain between her shoulder blades as a pressure, ache and burn. She has seen neurosurgeon, Dr. Brendan Buchanan, in the past and is going to schedule a follow up appointment here in the near future. Activities that aggravate her pain are pushing, pulling, lifting, housework and reaching. She does use ice which does decrease her pain. Patient's REVIEW OF SYSTEMS / PAST MEDICAL HISTORY / ALLERGIES and IMAGES have been reviewed and noted on the chart. PHYSICAL EXAM: VITAL SIGNS: Blood pressure is 125/76. Heart rate is 67. Temperature is 97.3. She is 5'7 , weighs 87 kg. GENERAL IMPRESSION: Pleasant, appropriate, in no acute distress. FOCUSED EXAM - BACK: Range of motion is functional in lateral rotation and flexion/extension. Paravertebral muscles are non-spasmodic. Compression over the trapezius muscles and thoracic spine of T4, T5, T6 facets reproduce the patient's pain pattern. MUSCULOSKELETAL: Motor, upper and lower extremities, are 5/5. No vasomotor weakness noted. NEUROLOGICAL: Diffuse polyneuropathy to hands and feet bilaterally. Patient is cognitively intact. Bilateral brachioradialis reflexes are 1/2. DIAGNOSIS: Chronic pain syndrome, thoracic spondylosis, thoracic degenerative disc. PLAN: We will refill her trazodone but increase it to 100 mg q.h.s. Refill baclofen 10 mg q.h.s. She is to follow up with Dr. Buchanan as scheduled, and we will prescribe her a compounded Buderer cream comprised of gabapentin, ketoprofen and lidocaine. Patient agrees with this plan, will be brought back to the clinic in three months' time. [facility] 10-28-2022 Note CONSULTATION CONSULTATION DATE: 10/28/2022 HISTORY OF PRESENT ILLNESS: This is a pleasant, 57-year-old female who returns to the clinic for a three month follow up for chronic thoracic pain. She was last seen on 06/24/2022 and, at that time, she was post #2 bilateral MBB of T1, T2 and T3, T4, which she had significant relief. The patient has not progressed to the radiofrequency ablation due to financial difficulties at this time. Today, she rates her pain a 4/10, which is between her shoulder blades, along the thoracic area. Activities such as standing, walking, pushing, pulling, housework, lifting and reaching greatly aggravate her pain. Medications include Lyrica 150 mg b.i.d., amitriptyline 100 mg q.h.s., baclofen 10 mg q.h.s., sertraline, trazodone and medical marijuana. The patient and her recently have recovered from COVID, and the patient feels that she is in a mental decline. She is unsure if it post-COVID or with the skilled nursing Lyrica prescription. She would like to trend down off the Lyrica and see how she does off of it. She currently takes 150 mg b.i.d. At this time, we will hold off on procedures and just medically manage her until she is able to move forward. Patient's REVIEW OF SYSTEMS / PAST MEDICAL HISTORY / ALLERGIES and IMAGES have been reviewed and noted on the chart. PHYSICAL EXAM: VITAL SIGNS: Blood pressure is 125/76. Heart rate is 67. Temperature is 97.3. She is 5'7 , weighs 87 kg. GENERAL IMPRESSION: Pleasant, appropriate, no acute distress. FOCUSED EXAM - BACK: Range of motion is guarded in lateral rotation and flexion/extension. Reproduction of spinal axial pain and fullness palpated along the thoracic facets of T1, T2 and T3, T4 indicative of facet arthropathy, thoracic spondylosis. Pain is non-radiating. MUSCULOSKELETAL: Bilateral upper extremities with motor 4/5. Gross and fine motor are intact. NEUROLOGICALLY: All cranial nerves intact. Patient is cognitively intact. Diffuse polyneuropathy to bilateral forearms and hands. DIAGNOSIS: Thoracic spondylosis, thoracic degenerative disc, thoracic pain. PLAN: Patient was given clear directions on how to slowly wean off of her Lyrica carefully. I did encourage her to take [id number] Aleve or ibuprofen as needed for inflammatory pain. Patient does agree with this plan and will be brought back to the clinic in four weeks' time for re-evaluation. [facility] 06-24-2022 Note CONSULTATION CONSULTATION DATE: 06/24/2022 This is a pleasant 56-year-old female returning to the clinic status post #2 bilateral MBB of T1- T2 and T3, T4 which afforded her 60% of relief for a day and 50% relief thereafter. She did have increase in functionality that allowed her to carry laundry, grocery shop, raise arms above her head and do her hair. Today her is 5 out of 10 is near but not quite at baseline. Her current medications include Lyrica 150 mg b.i.d., Baclofen 10 mg q.h.s., Trazadone 100 mg q.h.s. and amitriptyline. She does take Aleve [id number] on an as-needed basis. She still reports that twisting, pushing, pulling, lifting, housework and laundry does aggravate her pain. She does alternate heat and ice which she reports is helpful REVIEW OF SYSTEMS, PAST MEDICAL HISTORY, ALLERGIES AND IMAGES: Have been reviewed and noted in the chart. PHYSICAL EXAM: VITAL SIGNS: Blood pressure 107/65, heart rate is 90, temperature is 97.1. Height is 5/7 , weighs 86 kg. GENERAL APPEARANCE: Pleasant, appropriate and in no acute distress. FOCUSED EXAM: BACK: Range of motion is functional lateral rotation and flexion/extension. Compression along the thoracic facets reproduces the patient's pain symptomatology. Facet fullness palpated indicative ill facet arthropathy, thoracic spondylosis at T1, T2 and T3, T4. Arthropathy noted to bilateral costovertebral spaces. MUSCULOSKELETAL: Motor is intact 4 out of 5 bilaterally; good muscle tone. 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 The patient is cognitively intact. DIAGNOSIS: Thoracic spondylosis, thoracic degenerative disk and thoracic pain. PLAN: We will move forward to authorize for radiofrequency ablation, start on the right side, subsequently move to the left at T1, T2 and T3, T4. Refills for Baclofen 10 mg q.h.s. and Trazadone 100 mg q.h.s. will be filled today. She is to continue with her supportive measures at home which include heat and heat rub. The patient agrees with the plan of care. She will be followed up in the clinic post-procedure. [facility] 05-13-2022 Note CONSULTATION CONSULTATION DATE: 05/13/2022 HISTORY OF PRESENT ILLNESS: This is a very pleasant, 56-year-old female returning to the clinic for a thoracic MRI review. Her MRI reveals and confirms suspected thoracic degenerative disc and spondylosis to T1-T4. She has foraminal stenosis as well. She was last seen on 04/21/2022 and, at that time, her Lyrica was increased to 150 mg b.i.d., which she is tolerating very well. She feels improvement with that in her upper extremity radicular pain. Other medications include baclofen 10 mg q.h.s., amitriptyline 100 mg q.h.s., trazodone and sertraline. She has seen Dr. Buchanan, Neurosurgery in [facility], approximately 3-4 months ago, and at that time, he did not feel she was a surgical candidate for cervical or thoracic region. Activities such as vacuuming the house, lifting, twisting, pushing, pulling and bending aggravate her pain. She does not use heat or ice. Patient's REVIEW OF SYSTEMS / PAST MEDICAL HISTORY / ALLERGIES and IMAGES have been reviewed and they are noted on the chart. PHYSICAL EXAM: VITAL SIGNS: Blood pressure 124/81, heart rate is 73. Temperature is 97.3. She is 5'7 , weighs 84.2 kg. GENERAL APPEARANCE: Pleasant, appropriate, no acute distress but uncomfortable sitting in the chair. FOCUSED EXAM - NECK: Range of motion is functional in lateral rotation and flexion/extension. Mild reproduction of spinal axial pain to direct compression along the posterior elements of the cervical facets of C5, C6 and C7, T1. Muscles are non-spasmodic but taut. BACK: Thoracic facets are tender to direct palpation along T1, T2 and T3, T4 with pain radiating laterally to bilateral mid axillary line. Fullness palpated at the facets indicative of thoracic spondylosis and facet arthropathy. Range of motion is guarded in lateral rotation and flexion/extension. MUSCULOSKELETAL: Motor is intact bilateral upper extremities, 4/5, some decrease in fine motor movement and hand gripping. NEUROLOGICAL: Diffuse neuropathy to bilateral upper extremities with blunted brachioradialis and triceps reflexes. DIAGNOSIS: Thoracic spondylosis, thoracic degenerative disc disease, cervical neuritis and cervical radiculopathy. PLAN: Patient did have a #1 bilateral MBB in August of 2021 to T1, T2 and T3, T4 which afforded her 80% relief. At that time, progressing through the rhizotomy series was on hold, as she was referred to a neurosurgical physician. After reviewing the MRI results with the patient and discussing the benefits of progressing through the rhizotomy series, we will authorize for a #2 bilateral MBB to T1, T2 and T3, T4. There will be no medication changes at this time. We will maintain her on Lyrica, baclofen and trazodone at the said dose and frequency. She will be followed up in the office post procedure and patient agrees to move forward. [facility] 04-21-2022 Note CONSULTATION CONSULTATION DATE: 04/21/2022 This is a pleasant 56-year-old female who returns to the clinic for a 3-month follow-up. She was last seen on 01/21/2022 and at that time her Lyrica increased to 100 mg b.i.d. and Neurosurgery consult was sent to Dr. Brendan Buchanan at [facility]. The patient's primary problem today is upper thoracic pain with radiating pain under her armpit and around to her chest. She does have a history of cervical fusion, but is not complaining of overt neck pain at this time. Upon her consultation with Dr. Buchanan, he did not recommend surgery at this time but possibly in the future. The risks overrode the benefits of that at this time. Medications include amitriptyline 100 mg q.h.s., Zoloft 200 mg q. day, Trazadone 50 mg q.h.s., Baclofen 10 mg q.h.s., Lyrica 100 mg b.i.d. and medical marijuana. The patient uses the medical marijuana in the evening and she reports it give her great relief. She chooses this route for pain management over narcotics. She describes her pain as a burning and jab coming from the upper thoracic area, radiating to the right. She reports her pain is 5 out of 10. It is aggravated by housework, lifting, bending, ADLs and standing and walking. She does use heat and that mitigates her pain. REVIEW OF SYSTEMS, PAST MEDICAL HISTORY, ALLERGIES AND IMAGES: Have been reviewed and noted in the chart. PHYSICAL EXAM: VITAL SIGNS: Blood pressure 130/86, heart rate is 79, temperature is 97.8. Height is 5'7 , weight 84.6 kg. GENERAL APPEARANCE: Pleasant, appropriate, no acute distress but noticeable uncomfortable. FOCUSED EXAM: BACK: Spinoaxial pain is reproduced along the lower cervical, the upper thoracic facets at C7, T1 and T2, T3. Fullness was palpated at the facets, indicative of ill facet arthropathy, thoracic spondylosis. Radiating pain along the T1 and T2 dermatome that radiates under the axilla to mid-clavicular line to the right. MUSCULOSKELETAL: Motor is intact to upper and lower extremities, 4 out of 5 bilaterally; slight increased muscle weakness noted to the right upper extremity. NEUROLOGICAL: Patchy hypesthesia noted along C7 and C8 bilateral upper extremities to the level of the fingertips. Blunted bilateral brachioradialis reflexes. DIAGNOSIS: Thoracic neuritis, thoracic degenerative disk disease, thoracic pain and cervical degenerative disk disease. PLAN: We will trend up her Lyrica to 150 mg b.i.d. For lack of imaging, we will obtain an MRI of her thoracic region and the patient will be followed in the office to review that MRI and to form a plan of care at that time. The plan is to either approach from a lower cervical epidural steroid injection or proceed with a thoracic rhizotomy series. The patient agrees with the plan of care and would like to proceed. [facility] 10-13-2021 Evaluation note Encounter Date Diagnosis Assessment Notes Oct, Cervical myelopathy (ICD-10 - G95.9) This was a time consuming case. I received about a 1-1/2 inch thick package of notes from the [facility] which were reviewed, totaling approximately 300 pages. I reviewed independently the MRI of the cervical spine from June 2020 which shows a C3-7 fusion. There is a left C7-T1 foraminal stenosis but the patient has no C8 nerve weakness. She has bilateral hand tingling and has already had bilateral carpal tunnel decompressions. The tingling interestingly is more in a ulnar nerve distribution and sporadic; I do not think this represents an active acute pathology. With regard to the neck I see no further treatment that is needed; the patient's myelopathy is stable. She remains to have a slightly positive Ramu sign and diffusely hyperreflexic in the extremities. At this time no intervention is needed, she should return when symptoms change. 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) [employer] Other evaluation note* Diagnosis History of colon polyps- Primary [facility] in [facility] Narrative - Reported* Type Description Date Medical History anxiety Medical History chronic depression Medical History osteoporosis Medical History Hypothyroidism Medical History migraine headache Surgical History inguinal hernia as infant Surgical History x 4 Surgical History total hysterectomy Surgical History carpal tunnel x 2 Surgical History anterior cervical discectomy wi th fusion Surgical History occipital rhizotomy Hospitalization History see above [employer] Other InstructionsNot on filedocumented in this encounter [facility] SystemInstructionsNot on filedocumented in this encounter [facility] HospitalReason for visit NarrativeReferral Eileen Bradshaw Bulging of Cervical Intervertebral DiscNort Aposense Other Summary Purpose Family History No Family History Records FoundNo Family History Records FoundNo Family History Records FoundNo Family History Records Found Advance Directives No Advanced Directives Records FoundNo Advanced Directives Records FoundNo Advanced Directives Records FoundNo Advanced Directives Records Found Additional Source Comments INFORMATION SOURCE (unrecogn ized section and content) DATE CREATED AUTHOR 10/23/2019 [facility] DATE CREATED AUTHOR AUTHOR'S ORGANIZ ATION 07/27/2022 [facility] dical Specialist DATE CREATED AUTHOR AUTHOR'S ORGANIZ ATION 02/18/2023 [facility] DATE CREATED AUTHOR AUTHOR'S ORGANIZ ATION 10/09/2023 [facility] Care Teams (unrecognized sec tion and content) Credentialing Specialist Relationship Specialty Start Date End Date Jia Hart MD [address] [place] [address] PCP - General Family Medicine 11/08/16 Credentialing Specialist Relationship Specialty Start Date End Date Jia Hart MD [address] [place] [address] PCP - General Family Medicine 11/08/16 FOR RECORDS PERTAINING TO PATIENTS WHO ARE OR HAVE BEEN ENROLLED IN A CHEMICAL DEPENDENCY/SUBSTANCEABUSE PROGRAM, SOME INFORMATION MAY BE OMITTED. This clinical summary was aggregated from multiple sources. Caution should be exercised in using it in the provision of clinical care. This summary normalizes information from multiple sources, and as a consequence, information in this document may materially change the coding, format and clinical context of patient data. In addition, data may be omitted in some cases. CLINICAL DECISIONS SHOULD BE BASED ON THE PRIMARY CLINICAL RECORDS. [employer] provides no warranty or guarantee of the accuracy or completeness of information in this document.
--- NOTE | 2023-11-10 11:03 | P.CN_ITS ---
Consult Note: HPI Data of Consult Patient: known to practice within the last 3 years Requesting Physician: Barbara Foote NP Primary Care Provider: SCOTT HART Consult Narrative Reason for consult: f/u Narrative: Lilo mario pleasant 57 year old female presents for evaluation and management of chronic pain. Patient has ongoing neck pain and back pain post multiple surgeries. Patient has been following with NS who updated imaging of cervical, thoracic, and lumbar spine. Patient has been deemed non surgical at this time. Patient feels pain is overall manageable, at todays visit pain 4/10 does increase to 8/10 with activity. Patient finds benefit from current medication regimen without side effects. cc:: CC: Barbara Foote NP Review of Systems ROS Status of ROS 10 or more systems reviewed and unremark able except as noted in history and below Musculoskeletal Reports: back pain and neck pain Meds Home Medications and Allergies Home Medications Medication Instructions Recorded Confirmed Type MEDICAL MARIJUANA 02/24/23 History OSCAL 600 mg DAILY 02/24/23 History amitriptyline 100 mg tablet 100 mg PO DAILY 02/24/23 02/24/23 History baclofen 10 mg tablet 10 mg PO BID 02/24/23 02/24/23 History levothyroxine 50 mcg capsule 50 mcg PO DAILY 02/24/23 02/24/23 History pregabalin 150 mg capsule (Lyrica) 150 mg PO BID 02/24/23 02/24/23 History sertraline 200 mg capsule 200 mg PO DAILY 02/24/23 02/24/23 History trazodone 100 mg tablet 100 mg PO DAILY 02/24/23 02/24/23 History Allergies Allergy/AdvReac Type Severity Reaction Status Date / Time No Known Drug Allergies Allergy Verified 02/24/23 11:23 Exam Constitutional Documenting provider has reviewed patient's vital signs: yes Common normals: no apparent distress, oriented x3, healthy appearing, alert and well nourished General appearance: cooperative Orientation/consciousness: Yes awake, Yes oriented to person, Yes oriented to place and Yes oriented to time HENMT Common normals: normocephalic, hearing grossly normal bilaterally and moist oral mucous membranes Head and scalp: normocephalic Eye Common normals: PERRL Pupil: PERRL Neck & C-Spine Common normals: full ROM General: normal visual inspection Cervical spine: pain with cervical ROM Chest Common normals: inspection of chest normal Respiratory Common normals: normal respiratory effort, no retractions and no use of accessory muscles Effort & inspection: able to speak in complete sentences and symmetric chest movement Back & Pelvis Thoracic spine/upper back: normal to inspection, ROM limited, pain with ROM, paraspinal muscle tenderness and other soft tissue findings (positive facet loading right scapular ) Lumbar spine/lower back: pain with ROM and straight leg raise positive right Other: negative lumbar facet loading positve RLE radiculopathy Extremity Common normals: normal to inspection, full ROM, normal capillary refill and no pedal edema Other: muscle strength 4/5 bilat LE, 5/5 bilat UE sensation intact all extremities, no arm drift Neuro Common normals: oriented x3, CN's II-XII intact bilaterally, moves all extremities, no focal motor deficits, no sensory deficits noted and deep tendon reflexes 2+ bilaterally Sensorium/orientation: alert Motor exam: strength 5/5 throughout and no movement abnormalities noted Psych Common normals: mental status grossly normal, thought process normal, cooperative, affect normal, speech normal and activity/motor behavior normal Speech: normal speech Thought process: normal thought process Results Additional Findings Additional findings: I have checked an OARRS report on this patient today and there are no aberrancies noted in the prescribing history.?? A drug screen was completed and reviewed within the last year, and if there has not been a drug screen completed we ordered one today to monitor higher risk, state monitored pain medication use. As part of providing excellent, safe, comprehensive care, the following was completed at our patient's visit: 1. A medication reconciliation and review to ensure accurate knowledge of current/active medications, including asking our patients to inform us about any [id number] medications or herbal remedies/nutritional supplements/alternative remedies. 2. A review to specifically ensure our patients have had annual screening for: elevated body mass index (BMI), tobacco use, screening for depression, and screening for unhealthy alcohol use. When screening is concerning, patients are provided with education and the specific recommendation to discuss the concerning health issue and treatment options with their primary care provider. Assessment and Plan Assessment and Plan (1) Thoracic spondylosis: (2) Muscle spasm: (3) Chronic neck pain: (4) H/O neck surgery: (5) H/O degenerative disc disease: (6) Lumbar spondylosis: (7) Lumbar radiculopathy: Plan nonsurgical per NS, declining additional injections or interventions at this time start TENS continue current medication f/u 6 months or as needed
== END 2023-11-10 10:52 | disposition home or self-care (01) ==
LOC: PM 10:52
PROVIDERS: PCP Family Medicine; Visit Provider Nurse Practitioner
DX: M47.814 Spondylosis without myelopathy or radiculopathy, thoracic region (principal); M62.838 Other muscle spasm; M54.2 Cervicalgia; M47.816 Spondylosis without myelopathy or radiculopathy, lumbar region; M54.16 Radiculopathy, lumbar region
CPT/HCPCS: G0463

== ENCOUNTER 2024-04-25 10:42 | Outpatient (OUT) | payer OTHER, SELFPAY ==
--- OUTSIDE RECORDS SUMMARY | 2024-04-25 11:03 | XMS_ITS | CCD ---
Author Organization [facility] Care Team Providers Care Asset Protection Manager Name Role Phone Julian Pulido Unavailable CARRASCO ., DR HELENA Biggs Attending [...] DR HELENA Biggs Attending Unavailable WONDERLY, DR IJA Alatorre Primary Care Unavailable CARRASCO ., DR HELENA Biggs Admitting Unavailable CARRASCO ., DR HELENA Biggs Admitting Unavailable CARRASCO ., DR HELENA Biggs Attending Unavailable WONDERLY, DR JIA Alatorre Primary Care Unavailable CARSON ., KEVIN Consulting Unavailable LAKSHMIPATHY ., NARENDRANATH Admitting Ruth vailable WONDERLY, DR JIA Alatorre [...] Unavailable Wonderly Jia CHAVES Primary Care Provider VERO BETH Attending Unavailable WONDERJIA LUONG Referring Unavailable WONDERJIA LUONG Primary Care Unavailable PETEY LY Attending Unavailable PETEY LY Referring Unavailable ANNA RANDHAWA Attending Unavailable TODD ISLAS Admitting Unavailable TODD ISLAS Attending Unavailable TODD ISLAS Referring Unavailable WONDERJIA LUONG Primary Care Unavailable TODD ISLAS Attending Unavailable TODD ISLAS M Referring Unavailable WONDERLY, JIA B Primary Care Unavailable JEANNETTE HARRIS Attending Unavailable WONDERLY, JIA B Primary Care Unavailable TODD ISLAS Admitting Unavailable FLORENCIA ISLASLITZYARUNA Salguero Attending Unavailable FLORENCIA ISLASLITZYARUNA Salguero Referring Unavailable WONDERLY, JIA B Primary Care Unavailable ANNA RANDHAWA Referring Unavailable WONDERLY, JIA B Primary Care Unavailable Jeannette Palmer Referring Unavailable WONDERLY, JIA B Primary Care Unavailable PRIYANKA MCGRATH Referring Unavailable WONDERLY, JIA B Primary Care Unavailable PRIYANKA MCGRATH Referring Unavailable WONDERLY, JIA B Primary Care Unavailable SETH GILLESPIE Attending Unavailable WONDERLY, JIA B Primary Care Unavailable FLORENCIA ISLASGENOVEVAKRISTINA Salguero Attending Unavailable FLORENCIA ISLASGENOVEVAKRISTINA Salguero Referring Unavailable WONDERLY, JIA B Primary Care Unavailable TODD ISLAS Referring Unavailable WONDERLY, JIA B Primary Care Unavailable TODD ISLAS Attending Unavailable TODD ISLAS Referring Unavailable WONDERLY, JIA B Primary Care Unavailable Medications Current Medications Medication [...] the vagina. 0 07/07/2023 Active estrogens, conjugated (care home) 0.45 mg oral tablet (1 source) Estrogen [...] tablet (2 sources) Serotonin Reuptake Inhibitor Start: traZODone (DESYREL) 50 mg tablet Problems Active Problems Problem Classification Problem Date Documented Date Episodic/Chronic Anxiety disorders (2 sources) Generalized anxiety disorder; Translations: [Generalized anxiety disorder] Onset: 05-18-2017 05-18-2017 Chronic Esophageal disorders (1 source) Gastroesophageal reflux disease; Translations: [GERD (gastroesophageal reflux disease)] Chronic Genitourinary symptoms and ill-defined conditions (3 sources) Urinary incontinence; Translations: [Unspecified urinary incontinence] [...] conditions (not mental disorders or infectious disease) (2 sources) Encounter for screening mammogram for malignant neoplasm of breast; Translations: [Abnormal findings on diagnostic imaging of other parts of digestive tract] Onset: 10-07-2023 Episodic Spondylosis; intervertebral disc disorders; other back problems (11 sources) Spondylosis without myelopathy or radiculopathy, thoracic region; Translations: [Other intervertebral disc degeneration, thoracic region] Onset: 10-20-2021 Chronic Unclassified (1 source) history of colon polyps Onset: 09-09-2023 Urinary tract infections (3 sources) Recurrent urinary tract infection; Translations: [Urinary tract infection, site not specified] Onset: 06-19-2018 01-17-2023 Episodic Past or Other Problems Problem Classification Problem [...] Episodic Unclassified (2 sources) Onset: 2 01-19-2022 Results Test Name Value Interpretation Reference Range Facil ity MAMM SCREENING BILATERAL W 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 Computer aided detection was utilized. FINDINGS: There are scattered areas of fibroglandular density. There are no suspicious masses, calcifications, or areas of architectural distortion. IMPRESSION: No mammographic evidence of malignancy. BI-RADS: BI-RADS 1 - Negative Recommendation: Routine screening mammogram in 1 year. Finalized by Jeannette Palmer MD on 03/27/2024 9:08 AM 1 b MAMM [address] [facility] COLON BARIUM ENEMA W AIR CONTon 11-02-2023 FL COLON BARIUM ENEMA W AIR CONT FL COLON BARIUM ENEMA W AIR CONT Exam: Air-contrast barium enema. HISTORY: Abnormal colonoscopy. Incomplete colonoscopy. Chronic constipation. PROCEDURE: An air contrast barium enema was performed after the administration of barium and air through a rectal tip. There is free flow of contrast from the rectum to the cecum. The rectosigmoid colon is extremely tortuous and redundant. The remainder of the colon is tortuous. There are a few distal colonic diverticuli. There is no mass or stricture. The appendix fills with contrast. 35 images were obtained. The radiation dose air KERMA 5.10 MGY. Fluoroscopy time is 4.6 minutes. IMPRESSION: 1. Tortuous and redundant colon as described. Finalized by Babak Boone MD on 11/02/2023 2:45 PM Normal [facility] CT CERVICAL SPINE W CONTon 1 11-02-2022 [...] Palmer MD on 09/01/2023 11:48 AM Normal [facility] CT LUMBAR SPINE W CONTon CT LUMBAR [...] Palmer MD on 09/01/2023 12:07 PM Normal [facility] CT THORACIC SPINE W CONTon 1 11-02-2022 [...] Jeannette Palmer MD on 09/01/2023 11:56 AM Normal [facility] FL INJ LUM/SAC FOR DIAG/THER P [...] Palmer MD on 09/01/2023 11:34 AM Normal [facility] PLATELET COUNT AND MPVon Platelet mean volume (Bld) [Entitic vol] 8.3 fL Normal 7-12 [facility] Comment on above: Performed By: #### P LTCT, PINR #### [facility] ([id number]) [address] [place] [id number] Platelets (Bld) [#/Vol] 339 10*3/uL Normal 150-450 [facility] Comment on above: Performed By: #### P LTCT, PINR #### [facility] ([id number]) [address] [place] [id number] PROTIME AND INRon 09-01-2023 INR Coag (PPP) [Relative time] 1.0 {INR} Normal 0.8-1.1 [facility] Comment on above: Performed By: #### P LTCT, PINR #### [facility] ([id number]) [address] [place] [address] PT Coag (PPP) [Time] 11.8 s Normal 9.8-13.2 [facility] Comment on above: Result Comment: NEW REFERENCE RANGE Performed By: #### P LTCT, PINR #### [facility] ([id number]) [address] [place] [address] XR Bone Density (DEXA)on XR Bone Density (DEXA) EXAM: Dual Femur Bone Density FINDINGS: Dual Femur bone density obtained with a Microstim whole body system: [facility] Plan e-Matched Total(g/cm2)(%)T-Score (%)Z-Score Mean0.28159-2.77402.6 Impression: The mean BMD and corresponding T-score indicated above indicate Normal Bone Mass and places the patient at no significant risk for fracture. This information can serve as a baseline with which to compare future studies. EXAM: AP Lumbar Bone Density FINDINGS: AP Spine bone density obtained with a [employer] whole body system: RegionBMPounceg-AdultAg e-Matched Total(g/cm2)(%)T-Score (%)Z-Score L1-L40.59712-4.15962.7 Impression: The mean BMD and corresponding T-score [...] by Julio Delaney on 07/27/2022 1357 Normal [facility] [employer] CERVICAL SPINE 2 OR 3 [facility] 10-19-2019 CERVICAL SPINE 2 OR 3 [facility] Department of Radiology [address] [place] [phone] ======== Patient Name: SHAKA BEAUCHAMP : 1965 Sex: F Age: Race: White Pt. Location: Patient Status: O Ordered Date: 10/19/2019 8:05:00 AM Completed Date: 10/19/2019 08:06 AM Requesting Provider: JERMAINE DEL CID Attending Provider: JERMAINE DEL CID Report Copy To: JIA HART Signs & Symptoms: M48.02 Spinal stenosis, cervical region I10 History: Kelly Comments: , flex/ex , flex/ex , , [...] 2017 Electronically signed: Joshua Mcadams. Transcribed by: [email or web address], User Resident: Electronically Signed by: JOSHUA MCADAMS @ 10/19/2019 02:03 PM Normal [facility] Comment on above: Order Comment: , fle x/ex , flex/ex , , , Ordering Provider - JERMAINE DEL CID MD , APTTon 05-30-2019 aPTT Coag (Bld) [Time] 27.7 s Normal 25.0-35.0 [facility] Comment on above: Result Comment: ALL RESULTS [...] THIS PURPOSE. Performed By: #### 5 7307, [id number] #### [facility] [address] [place] [address], [facility] BASIC METABOLIC PANELon 01-12 Calcium [Mass/Vol] 9.2 mg/dL Normal 8.6-10.3 [facility] Comment on above: Performed By: #### 0 0071 #### [facility] [address] [facility] [place] [place] [address], [facility] Chloride [Moles/Vol] 98 mmol/L Normal 98-107 [facility] Comment on above: Performed By: #### 0 0071 #### [facility] [address] [facility] [place] [address], [facility] CO2 [Moles/Vol] 31 mmol/L Normal 21-31 [facility] Comment on above: Performed By: #### 0 0071 #### [facility] [address] [facility] [place] [address], [facility] Creatinine [Mass/Vol] 1.06 mg/dL Normal 0.60-1.20 [facility] Comment on above: Performed By: #### 0 0071 #### [facility] [address] [facility] [place] [address], [facility] GFR/1.73 sq M predicted among blacks MDRD (S/P/Bld) [Vol rate/Area] mL/min/{1.73_m2} Normal >60 [facility] Comment on above: Performed By: #### 0 0071 #### [facility] [address] [place] [address], [facility] GFR/1.73 sq M predicted among non-blacks MDRD (S/P/Bld) [Vol rate/Area] 54 ml/min/1.73sq m Abnormal >60 [facility] Comment on above: Performed By: #### 0 0071 #### [facility] [address] [place] [address], [facility] Glucose [Mass/Vol] 132 mg/dL High 70-100 [facility] Comment on above: Performed By: #### 0 0071 #### [facility] [address] [place] [address], [facility] Potassium [Moles/Vol] 3.6 mmol/L Normal 3.5-5.1 [facility] Comment on above: Performed By: #### 0 0071 #### [facility] [address] [place] [address], [facility] Sodium [Moles/Vol] 138 mmol/L Normal 136-145 [facility] Comment on above: Performed By: #### 0 0071 #### [facility] [address] [place] [address], [facility] Urea nitrogen [Mass/Vol] 20 mg/dL Normal 7-25 [facility] Comment on above: Performed By: #### 0 0071 #### [facility] [address] [facility] [address], [facility] CBC W/DIFFon 02-08-2019 ABS BASOPHILS 0.0 10*3/uL Normal 0.0-0.2 [facility] Comment on above: Performed By: #### 5 0103 #### [facility] [address] [place] [id number], [facility] ABS IMM GRANS 0.0 10*3/uL Normal 0.0-0.2 [facility] Comment on above: Performed By: #### 5 0103 #### [facility] [address] [place] [id number], [facility] ABS NEUTROPHILS 5.8 10*3/uL Normal 1.6-7.6 [facility] Comment on above: Performed By: #### 5 0103 #### [facility] [address] [place] [address], [facility] Basophils/100 WBC (Bld) 0.4 % Normal 0.0-1.0 [facility] Comment on above: Performed By: #### 5 0103 #### [facility] [address] [place] [address], [facility] Eosinophils (Bld) [#/Vol] 0.1 10*3/uL Normal 0.0-0.5 [facility] Comment on above: Performed By: #### 5 0103 #### [facility] [address] [place] [address], [facility] Eosinophils/100 WBC (Bld) 1.0 % Normal 0.0-6.0 [facility] Comment on above: Performed By: #### 5 0103 #### [facility] [address] [place] [address], [facility] Erythrocyte distribution width (RBC) [Ratio] 14.1 % Normal 11.5-15.0 [facility] Comment on above: Performed By: #### 5 0103 #### [facility] [address] [place] [address], [facility] Hematocrit (Bld) [Volume fraction] 36.3 % Normal 36.0-45.0 [facility] Comment on above: Performed By: #### 5 0103 #### [facility] [address] [place] [address], [facility] Hemoglobin (Bld) [Mass/Vol] 11.9 g/dL Low 12.0-15.0 [facility] Comment on above: Performed By: #### 5 0103 #### [facility] [address] [place] [address], [facility] IMMATURE GRANS 0.4 % Normal 0.0-1.0 [facility] mill[facility] Comment on above: Performed By: #### 5 0103 #### [facility] [address] [facility] [place] [address], [facility] Lymphocytes (Bld) [#/Vol] 1.5 10*3/uL Normal 1.2-4.0 [facility] Comment on above: Performed By: #### 5 0103 #### [facility] [address] [place] [address], [facility] Lymphocytes/100 WBC (Bld) 19.1 % Low 20.0-45.0 [facility] Comment on above: Performed By: #### 5 3 #### [facility] [address] MCH (RBC) [Entitic mass] 28.5 pg Normal 27.0-33.0 [facility] Comment on above: Performed By: #### 5 0103 #### [facility] [address] [place] [address], [facility] MCHC (RBC) [Mass/Vol] 32.8 g/dL Normal 32.0-35.0 [facility] Comment on above: Performed By: #### 5 0103 #### [facility] [address] [place] [address], [facility] MCV (RBC) [Entitic vol] 87.1 fL Normal 82.0-98.0 [facility] Comment on above: Performed By: #### 5 3 #### [facility] [address] [place] [address], [facility] Monocytes (Bld) [#/Vol] 0.4 10*3/uL Normal 0.1-1.0 [facility] Comment on above: Performed By: #### 5 0103 #### [facility] [address] [facility] [place] [address], [facility] MONOS 4.9 % Low 5.0-12.0 [facility] Comment on above: Performed By: #### 5 102 #### [facility] [address] [facility] [place] [address], [facility] Neutrophils/100 WBC (Bld) 74.2 % High 40.0-72.0 [facility] Comment on above: Performed By: #### 5 0103 #### [facility] [address] [place] [address], [facility] Nucleated RBC/100 WBC (Bld) [Ratio] 0 % Normal 0-0 [facility] Comment on above: Performed By: #### 102 #### [facility] [address] [place] [address], [facility] PLAT CNT 294 10*3/uL Normal 150-400 [facility] Comment on above: Performed By: #### 5 0103 #### [facility] [address] [place] [address], [facility] RBC (Bld) [#/Vol] 4.17 10*6/uL Normal 3.80-5.00 [facility] Comment on above: Performed By: #### 5 3 #### [facility] [address] [place] [address], [facility] WBC (Bld) [#/Vol] 7.80 10*3/uL Normal 4.00-10.60 [facility] Comment on above: Performed By: #### 5 3 #### [facility] [address] [place] [address], [facility] CERVICAL MYELOGRAMon 019 CERVICAL MYELOGRAM [facility] Department of Radiology [address] [place] [phone] ======== Patient Name: SHAKA BEAUCHAMP : 1965 Sex: F Age: Race: White Pt. Location: 85 Patient Status: O Ordered Date: 01/25/2019 12:50:00 PM Completed Date: 02/08/2019 10:38 AM Requesting Provider: JERMAINE DEL CID Attending Provider: HELENA CARRASCO Report Copy To: JIA HART Signs & Symptoms: M48.02 Spinal stenosis, cervical region I10 History: Burns Comments: , , , Ordering Provider - [...] risks are acceptable. Consent was obtained. Timeout: [place] protocol timeout verification performed. PROCEDURE: Estimated blood [...] findings. Electronically signed by:Den Gonzalez. Transcribed by: [email or web address], User Resident: Electronically Signed by: DEN GONZALEZ @ 02/08/2019 03:30 PM Normal [facility] Comment on above: Order Comment: , , = ========= , Ordering Provider - JERMAINE DEL CID MD , CT 3D CERVICAL SPINE WITH CO NTRASTon 02-08-2019 CT 3D CERVICAL SPINE WITH CONTRAST [facility] Department of Radiology [address] [place] [phone] ======== Patient Name: SHAKA BEAUCHAMP : 1965 Sex: F Age: Race: White Pt. Location: Patient Status: O Ordered Date: 01/25/2019 12:50:00 PM Completed Date: 02/08/2019 11:09 AM Requesting Provider: JERMAINE DEL CID Attending Provider: JERMAINE DEL CID Report Copy To: HAILEY JIA Signs & Symptoms: M48.02 Spinal stenosis, cervical region I10 History: [facility] auth# [id number] 01/30/19-05/02/19 cpt code 89364 *mla Comments: Exam: CT 3D CERVICAL SPINE [...] stenosis Electronically signed by:Den Gonzalez. Transcribed by: [email or web address], User Resident: Electronically Signed by: DEN GONZALEZ @ 02/08/2019 01:36 PM Normal [facility] PROTHROMBIN TIMEon 9 INR Coag (PPP) [Relative time] 1.04 {INR} Normal 0.91-1.16 [facility] Comment on above: Result Comment: ACCC P [...] CHEST 1995;[id number]. Performed By: #### 5 7307, [id number] #### [facility] [address] [place] [address], [facility] PT Coag (PPP) [Time] 13.6 s Normal 12.3-14.8 [facility] Comment on above: Result Comment: ALL RESULTS MUST BE INTERPRETED WITH RESPECT TO BLOOD DRAWING ARTIFACT OR DILUTION ERROR OF ANTICOAGULANT AT THE TIME OF SAMPLING. Performed By: #### 5 7307, [id number] #### [facility] [address] [place] [address], [facility] URINALYSIS REFLEXon 02-09-20 19 Appearance (U) CLEAR Normal CLEAR [facility] Comment on above: Performed By: #### 3 0965 #### [facility] [address] [place] [address], [facility] Bilirubin [Mass/Vol] Negative Normal NEGATIVE [facility] Comment on above: Performed By: #### 3 0965 #### [facility] [address] [place] [address], [facility] BLOOD SMALL Abnormal NEGATIVE [facility] Comment on above: Performed By: #### 3 0965 #### [facility] [address] [place] [address], [place] Color (U) STRAW Abnormal YELLOW [facility] Comment on above: Performed By: #### 3 0965 #### [facility] [address] [place] [address], [place] EPIS MANY Abnormal FEW,OCC,NONE SEEN [facility] Comment on above: Performed By: #### 3 0965 #### [facility] [address] [place] [address], [place] Glucose [Mass/Vol] Negative Normal NEGATIVE [facility] Comment on above: Performed By: #### 3 0965 #### [facility] [address] [place] [address], [place] KETONE Negative Normal NEGATIVE [facility] Comment on above: Performed By: #### 3 0965 #### [facility] [address] [place] [address], [place] LEUK TOMMY Negative Normal NEGATIVE [facility] Comment on above: Performed By: #### 3 0965 #### [facility] [address] [place] [address], [place] Nitrite Ql (U) Negative Normal NEGATIVE [facility] Comment on above: Performed By: #### 3 0965 #### [facility] [address] [place] [address], [facility] pH (Bld) 7.0 Normal 5.0-8.0 [facility] Comment on above: Performed By: #### 3 0965 #### [facility] [address] [place] [address], [facility] Protein (U) [Mass/Vol] Negative Normal NEGATIVE [facility] Comment on above: Performed By: #### 3 0965 #### [facility] [address] [place] [address], [facility] RBC (U) [#/Vol] 0-2 Abnormal NONE SEEN The [facility] Comment on above: Performed By: #### 3 0965 #### [facility] [address] [place] [address], [facility] SPEC GRAV 1.002 Low 1.015-1.020 [facility] Comment on above: Performed By: #### 3 0965 #### [facility] [address] [facility] [place] [address], [facility] WBC UA 0-2 Abnormal NONE SEEN [facility] Comment on above: Performed By: #### 3 0965 #### [facility] [address] [place] [address], [facility] Vital Signs Date Time Vital Sign Value Performing Clinician Lily [email or web address] 10-13-2021 15:20-0500 Body height 171.45 cm Julian Pulido Other [email or web address] Other 10-13-2021 15:20-0500 Body mass index (BMI) [Ratio] 26.54 kg/m2 Julian Pulido Other [email or web address] Other 10-13-2021 15:20-0500 Body weight 78.02 kg Julian Pulido Other [email or web address] Other Encounters Encounter Date Encounter Type Care Provider Facility Start: 03-26-2024 End: 03-26-2024 ambulatory ANNA RANDHAWA [facility] Start: 03-19-2024 End: 03-19-2024 ambulatory ANNA RANDHAWA Not Available Start: 02-14-2024 End: 02-14-2024 ambulatory PETEY LY Not Available Start: 01-23-2024 End: 01-23-2024 ambulatory VERO BETH [facility] Start: 11-04-2023 Telephone encounter Krys Saunders CMA [facility] Start: 11-02-2023 End: 11-02-2023 ambulatory [facility] Start: 10-08-2023 End: 10-08-2023 Evaluation and management of inpatient SETH Barrios [facility] Start: 10-07-2023 End: 10-08-2023 Evaluation and management of inpatient [facility] Start: 10-07-2023 End: 10-07-2023 Evaluation and management of inpatient [facility] Start: 09-23-2023 Orders Only Ricarda Pizarro [facility] Comment on above: History of colon olga lidia yps (Primary Dx) Start: 09-10-2023 End: 09-10-2023 Evaluation and management of inpatient JEANNETTE HARRIS [facility] Start: 09-09-2023 End: 09-10-2023 Evaluation and management of inpatient [facility] Start: 09-01-2023 End: 09-01-2023 ambulatory [facility] Start: 09-01-2023 End: 09-01-2023 ambulatory PRIYANKA MCGRATH [facility] Start: 02-24-2023 ambulatory LARISA ADAMS . Facility:H1 [...] 10-13-2021 End: 10-13-2021 ambulatory Julian Pulido Other [facility] [employer] Other Start: 10-13-2021 Office outpatient ne w 45 minutes Julian Pulido [facility] Neurosurgery Procedures Date Procedure Procedure Detail Performing Clinician Start: 01-23-2024 Follow-up visit Follow-up VERO BETH Start: 10-07-2023 Colonoscopy Krys Wynn ia [employer] Start: 06-11-2021 Adult depression scr eening assessment Ricarda GARNERA Plan of Treatment Date Care Activity Detail Author Start: 10-07-2033 Screening for malign ant neoplasm of colon Colonoscopy [facility] Start: 10-07-2024 Adult BMI Screening Adult BMI Screen ing [facility] [facility] Start: 10-07-2024 Tobacco Screening Tobacco Screening [facility] Start: 09-09-2024 Adult BMI Screening Adult BMI Screen ing [facility] Start: 09-09-2024 Tobacco Screening Tobacco Screening [facility] Start: 01-23-2024 End: 01-23-2024 Patient encounter procedure 01/23/2024 1:45 PM EDT Office Visit [facility] [address] [place] [address] [place] [address] [address] Vero Beth MD [address] [place] [address] [facility] Start: 10-07-2023 End: 10-07-2023 Admission to same day surgery center 10/07/2023 8:15 AM EST - 10/07/2023 9:00 AM EST Surgery [facility] - Surgery [address] [place] [phone] Todd Islas MD [address] [place] [phone] COLONOSCOPY DIAGNOSTIC / SCREENING [82173 (CPT )] [facility] Comment on above: COLONOSCOPY DIAGNOST IC / SCREENING [55617 (CPT )] Start: 10-07-2023 End: 10-07-2023 Colonoscopy flx dx w/collj spec when pfrmd COLONOSCOPY DIAGNOSTIC / SCREENING poor prep on previous colonoscopy 10/07/2023 8:15 AM EST [facility] Start: 10-07-2023 Subsequent hospital visit by physician 10/07/2023 8:15 AM EST Hospital Encounter [facility] [address] [place] [phone] Todd Islas MD [address] [place] [phone] [facility] Start: 09-29-2023 End: 09-29-2023 ambulatory 09/29/2023 2:20 PM EST Support Visit [facility] - Pre Admit [address] [place] [phone] [facility] - Pre Admit Start: 01-19-2023 Adult BMI Follow Up Plan Adult BMI Follow Up Plan [facility] Start: 06-11-2022 Depression Screening Depression Scre ening [facility] Start: 2014 Administration of varicella zoster vaccine Zoster (Shingles) Vaccine (1 of 2) [facility] Start: 1983 DTaP,Tdap and Td Vac cines (1 - Tdap) DTaP,Tdap and Td Vaccines (1 - Tdap) [facility] Payers Date Payer Category Payer Private Health Insurance [employer] [employer] [employer] [id number] 2022-Present [phone] [address] [address] [place] [address] [id number]. 2.7.3.472815.315 1964 Unknown [id number] 2.16.840.1.383321.3.579. 2.593 1964 Unknown [id number] 2.16.840.1.460138.3.579. 2.593 1964 Unknown [id number] 2.16.840.1.408918.3.579. 2.593 1964 Unknown [id number] 2.16.840.1.200058.3.579. 2.593 1964 Unknown [id number] 2.16.840.1.513158.3.579. 2.593 1964 Unknown [id number] 2.16.840.1.645044.3.579. 2.593 1964 Unknown [id number] 2.16.840.1.920398.3.579. 2.593 1964 Unknown [id number] 2.16.840.1.794480.3.579. 2.1286 1964 Unknown [id number] 2.16.840.1.644207.3.579. 2.1259 1964 Unknown [id number] 2.16.840.1.447854.3.579. 2.1259 1964 Unknown [id number] 2.16.840.1.146754.3.579. 2.1259 1964 Unknown [id number] 2.16.840.1.158523.3.579. 2.1286 1964 Unknown [id number] 2.16.840.1.971753.3.579. 2.1286 1964 Unknown [id number] 2.16.840.1.469384.3.579. 2.1286 1964 Unknown [id number] 2.16.840.1.763061.3.579. 2.1286 1964 Unknown [id number] 2.16.840.1.419438.3.579. 2.1286 1964 Unknown [id number] 2.16.840.1.826098.3.579. 2.1286 1964 Unknown [id number] 2.16.840.1.088343.3.579. 2.1286 1964 Unknown [id number] 2.16.840.1.025823.3.579. 2.1286 1964 Unknown [id number] 2.16.840.1.697000.3.579. 2.1286 1964 Unknown [id number] 2.16.840.1.851241.3.579. 2.1286 1964 Unknown [id number] 2.16.840.1.141461.3.579. 2.1286 1964 Unknown [id number] 2.16.840.1.862046.3.579. 2.1286 1964 Unknown [id number] 2.16.840.1.009687.3.579. 2.1286 1964 Unknown [id number] 2.16.840.1.829668.3.579. 2.1286 1964 Unknown [id number] 2.16.840.1.699237.3.579. 2.1286 1964 Unknown [id number] 2.16.840.1.352727.3.579. 2.1286 1959 Unknown [id number] 2.16.840.1.693450.19 1959 Unknown [id number] Social History Date Type Detail Facility Unknown if ever smoked [email or web address] Other Start: 09-26-2020 End: 09-09-2023 Sex Assigned At [facility] [employer] Start: 08-10-2023 Tobacco smoking stat [facility] Ex-smoker [facility] History of tobacco use Current smoker [facility] Start: 08-10-2023 Tobacco use and exposure Smokeless tobacco non-user [facility] Start: 09-09-2023 End: 10-10-2023 Alcohol intake Current drinker of alcohol (finding) [facility] Start: 09-26-2020 End: 09-09-2023 History of Social function [facility] Adolescent depressio n screening assessment 1 [facility] Start: 05-15-2021 Alcohol Comment [facility] Start: 1965 Sex Assigned At Not on file [facility] Medical Equipment Procedure Code Equipment Code Equipment Origin al Text Equipment Identifier Dates Screw Bn 30mm 3m m 4.3mm [facility] Slf Drl Hdls Ti Mn T9 - Sna - [id number] Start: 05-15-2021 Clinical Notes 10-13-2021 to 11-04-2023 Telephone Encounter - Krys Saunders CMA - 11/04/2023 11:15 AM ESTTelephone Encounter - Krys Saunders CMA - 11/04/2023 11:15 AM ESTTelephone Encounter - Krys Saunders CMA - 11/04/2023 11:15 AM EST Note Date [...] put into chart. documented in this encounter [facility] 11-04-2023 Telephone encount er Note ----- Message [...] 2:46 PM EST To: Todd Islas MD [facility] 11-04-2023 Telephone encount er Note Spoke with patient regarding pathology results. Patient verbally understood with no further questions. Recall will be put into chart. [facility] 11-25-2022 Note CONSULTATION CONSULTATION DATE: 11/25/2022 HISTORY: [...] the clinic in three months' time. [facility] 10-28-2022 Note CONSULTATION CONSULTATION DATE: 10/28/2022 HISTORY [...] unsure if it post-COVID or with the assisted Lyrica prescription. She would like to trend [...] carefully. I did encourage her to take oboo-wns-sbxvppe Aleve or ibuprofen as needed for inflammatory pain. Patient does agree with this plan and will be brought back to the clinic in four weeks' time for re-evaluation. [facility] 06-24-2022 Note CONSULTATION CONSULTATION DATE: 06/24/2022 This [...] q.h.s. and amitriptyline. She does take Aleve cypy-hjp-offxspt on an as-needed basis. She still reports [...] followed up in the clinic post-procedure. [facility] 05-13-2022 Note CONSULTATION CONSULTATION DATE: 05/13/2022 HISTORY [...] seen Dr. Buchanan, Neurosurgery in [facility], approximately 3-4 months ago, and at that [...] and patient agrees to move forward. [facility] 04-21-2022 Note CONSULTATION CONSULTATION DATE: 04/21/2022 This is a pleasant 56-year-old female who returns to the clinic for a 3-month follow-up. She was last seen on 01/21/2022 and at that time her Lyrica increased to 100 mg b.i.d. and Neurosurgery consult was sent to Dr. Brendan Buchanan at [facility]. The patient's primary problem today is [...] care and would like to proceed. [facility] 10-13-2021 Evaluation note Encounter Date Diagnosis Assessment Notes Oct, Cervical myelopathy (ICD-10 - G95.9) This was a time consuming case. I received about a 1-1/2 inch thick package of notes from the [facility] which were reviewed, totaling approximately 300 pages. [...] of both upper extremities (ICD-10 - G56.23) [email or web address] Other evaluation note* Diagnosis History of colon polyps- Primary documented in this encounter [employer]History general Narrative - Reported* Type Description Date Medical History anxiety Medical History chronic depression Medical History osteoporosis Medical History Hypothyroidism Medical History migraine headache Surgical History inguinal hernia as Surgical History x 4 Surgical History total hysterectomy Surgical History carpal tunnel x 2 Surgical History anterior cervical discectomy wi th fusion Surgical History occipital rhizotomy Hospitalization History see above [email or web address] Other InstructionsNot on filedocumented in this encounter [employer] SystemInstructionsNot on filedocumented in this encounter [facility] SystemReason for visit NarrativeReferral Eileen Bradshaw Bulging of Cervical Intervertebral DiscNort PEX Card Other Summary Purpose Family History No Family [...] and content) DATE CREATED AUTHOR 10/23/2019 [facility] DATE CREATED AUTHOR AUTHOR'S ORGANIZ ATION 07/27/2022 [facility] dical Specialist DATE CREATED AUTHOR AUTHOR'S ORGANIZ ATION 02/18/2023 [facility] pital DATE CREATED AUTHOR AUTHOR'S ORGANIZ ATION 01/25/2024 [facility] DATE CREATED AUTHOR AUTHOR'S ORGANIZ ATION 03/20/2024 [facility] dical Specialists EPIC DATE CREATED AUTHOR AUTHOR'S ORGANIZ ATION 03/30/2024 [facility] Care Teams (unrecognized sec tion and content) Asset Protection Manager Relationship Specialty Start Date End Date Jia Hart MD [address] [place] [address] PCP - General Family Medicine 11/08/16 Asset Protection Manager Relationship Specialty Start Date End Date Jia Hart MD [address] [place] [address] PCP - General Family Medicine 11/08/16 FOR [...] BE BASED ON THE PRIMARY CLINICAL RECORDS. [facility] provides no warranty or guarantee of the accuracy or completeness of information in this document.
--- NOTE | 2024-04-25 11:25 | P.CN_ITS ---
Consult Note: HPI Data of Consult Patient: known to practice within the last 3 years Requesting Physician: Barbara Foote NP Primary Care Provider: SCOTT Stinson Narrative Reason for consult: f/u Narrative: Lilo Hammond a pleasant 57 year old female presents for evaluation and management of chronic pain. Patient has ongoing neck pain and back pain post multiple surgeries. Patient has been deemed non surgical at this time. Patient feels pain is overall manageable, at todays visit pain 4/10 does increase to 8/10 with activity. Patient finds benefit from current medication regimen without side effects. cc:: CC: Barbara Foote NP Review of Systems ROS Status of ROS 10 or more systems reviewed and unremark able except as noted in history and below Musculoskeletal Reports: back pain, neck pain and extremity pain PFSH PFSH Medical History (Updated 04/25/24 @ 11:27 by Barbara Foote NP) Cervical vertebral fusion ?M43.22 - Fusion of spine, cervical region (ICD-10) Left kidney mass ?N28.89 - Other specified disorders of kidney and ureter (ICD-10) HTN (hypertension) ?I10 - Essential (primary) hypertension (ICD-10) High cholesterol ?E78.00 - Pure hypercholesterolemia, unspecified (ICD-10) Medical marijuana use ?Z79.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 - 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 (ICD-10) Degenerative disc disease Osteoarthritis ?M19.90 - Unspecified osteoarthritis, unspecified site (ICD-10) Carpal tunnel syndrome ?G56.00 - Carpal tunnel syndrome, unspecified upper limb (ICD-10) Anxiety ?F41.9 - Anxiety disorder, unspecified (ICD-10) Hiatal hernia ?K44.9 - Diaphragmatic hernia without obstruction or gangrene (ICD-10) Acid reflux ?K21.9 - Gastro-esophageal reflux disease without esophagitis (ICD-10) Hypothyroid ?E03.9 - Hypothyroidism, unspecified (ICD-10) Surgical History History of thyroidectomy ?E89.0 - Postprocedural hypothyroidism (ICD-10) History of hysterectomy ?Z90.710 - Acquired absence of both cervix and uterus (ICD-10) History of carpal tunnel release ?Z98.890 - Other specified postprocedural states (ICD-10) H/O section ?Z98.891 - History of uterine scar from previous surgery (ICD-10) Meds Home Medications and Allergies Home Medications ?Medication ?Instructions ?Recorded ?Confirmed ?Type MEDICAL MARIJUANA 02/24/23 History OSCAL 600 mg DAILY 02/24/23 History amitriptyline 100 mg tablet 100 mg PO DAILY 02/24/23 02/24/23 History baclofen 10 mg tablet 10 mg PO BID 02/24/23 02/24/23 History levothyroxine 50 mcg capsule 50 mcg PO DAILY 02/24/23 02/24/23 History pregabalin 150 mg capsule (Lyrica) 150 mg PO BID 02/24/23 02/24/23 History sertraline 200 mg capsule 200 mg PO DAILY 02/24/23 02/24/23 History trazodone 100 mg tablet 100 mg PO DAILY 02/24/23 02/24/23 History amitriptyline 100 mg tablet 100 mg PO DAILY #30 tabs 12/22/23 Rx Allergies Allergy/AdvReac Type Severity Reaction Status Date / Time No Known Drug Allergies Allergy Verified 02/24/23 11:23 Exam Constitutional Documenting provider has reviewed patient's vital signs: yes Common normals: no apparent distress, oriented x3, healthy appearing, alert and well nourished General appearance: cooperative Orientation/consciousness: Yes awake, Yes oriented to person, Yes oriented to place and Yes oriented to time HENMT Common normals: normocephalic, hearing grossly normal bilaterally and moist oral mucous membranes Head and scalp: normocephalic Eye Common normals: PERRL Pupil: PERRL Neck & C-Spine Common normals: full ROM General: normal visual inspection Cervical spine: cervical ROM abnormal and pain with cervical ROM Other: positive spurlings altered sensation and radiculopathy to right C6,7 Chest Common normals: inspection of chest normal Respiratory Common normals: normal respiratory effort, no retractions and no use of accessory muscles Effort & inspection: able to speak in complete sentences and symmetric chest movement Back & Pelvis Thoracic spine/upper back: normal to inspection, ROM limited, pain with ROM, paraspinal muscle tenderness and other soft tissue findings (positive facet jason ding right scapular ) Lumbar spine/lower back: pain with ROM and straight leg raise positive right Other: negative lumbar facet loading positve RLE radiculopathy Extremity Common normals: normal to inspection, full ROM, normal capillary refill and no pedal edema Other: muscle strength 4/5 bilat LE, 5/5 bilat UE sensation intact all extremities, no arm drift Neuro Common normals: oriented x3, CN's II-XII intact bilaterally, moves all extremities, no focal motor deficits, no sensory deficits noted and deep tendon reflexes 2+ bilaterally Sensorium/orientation: alert Motor exam: strength 5/5 throughout and no movement abnormalities noted Psych Common normals: mental status grossly normal, thought process normal, cooperative, affect normal, speech normal and activity/motor behavior normal Speech: normal speech Thought process: normal thought process Results Additional Findings Additional findings: If on a controlled substance or opioids, I have checked an [place]AR[place] report on this patient and there are no aberrancies noted in the prescribing history.??If on a controlled substance or opioid a drug screen was completed and reviewed within the last year, and if there has not been a drug screen completed we ordered one today to monitor higher risk, state monitored pain medication use. As part of providing excellent, safe, comprehensive care, the following was completed at our patient's visit: 1. A medication reconciliation and review to ensure accurate knowledge of current/active medications, including asking our patients to inform us about any rjgn-wic-jfdqfdt medications or herbal remedies/nutritional supplements/alternative remedies. 2. A review to specifically ensure our patients have had annual screening for screening for depression, screening for tobacco use, and screening for unhealthy alcohol use. For concerning screenings had a discussion with the patient, provided patient education, and recommended follow-up with primary care provider when appropriate. If patient noted with a risk of falling, they received education on strength, gait, and balance training to prevent future risk of falling. Assessment and Plan Assessment and Plan (1) Thoracic spondylosis: (2) Muscle spasm: (3) Chronic neck pain: (4) H/O neck surgery: (5) H/O degenerative disc disease: (6) Lumbar spondylosis: (7) Lumbar radiculopathy: (8) Cervical radiculopathy: (9) Cervical spondylosis: Plan nonsurgical per NS, declining additional injections or interventions at this time continue TENS continue current medication regimen, tolerating well without side effects. can return to PCP and f/u PRN per pt request
== END 2024-04-25 10:43 | disposition home or self-care (01) ==
LOC: PM 10:42
PROVIDERS: PCP Family Medicine; Visit Provider Nurse Practitioner
DX: M62.838 Other muscle spasm (principal); M54.2 Cervicalgia; M47.816 Spondylosis without myelopathy or radiculopathy, lumbar region; M54.12 Radiculopathy, cervical region; M47.812 Spondylosis without myelopathy or radiculopathy, cervical region; M47.814 Spondylosis without myelopathy or radiculopathy, thoracic region
CPT/HCPCS: G0463